=== PATIENT | female | born 1960 | race Caucasian/White ===

== ENCOUNTER 2023-03-02 08:38 | Inpatient (IN) | payer MEDICARE, SELFPAY ==
[2023-03-02] VITALS (10 sets, daily range): BP systolic 108–126; BP diastolic 70–99; PULSE 79–163; RESP 18–23; TEMP 36.5–36.8; O2SAT 89–94; BMI 38.7
--- NOTE | 2023-03-02 08:42 | ECG_ITS ---
[facility] Test Date: 2023-03-02 Pat Name: Kayli Meza Department: Room: Gender: Female Supervisor Microfilm Duplicating Unit: : 1960 Requested By: Zackery Escobar Order Number: [id number] Daniel MD: Daniel English M.D. Measurements Intervals [place] Rate: 103 P: 52 MD: 162 QRS: 66 QRSD: 87 T: 54 QT: 298 QTc: 392 Interpretive Statements SINUS TACHYCARDIA ABNORMAL RHYTHM ECG No previous ECG available for comparison Electronically Signed On 03-02-2023 17:45:40 CARTON WAXING MACHINE OPERATOR by Daniel English M.D. [id number]
--- NOTE | 2023-03-02 08:42 | XRR_ITS ---
PROCEDURE INFORMATION: Exam: XR Chest Exam date and time: 03/02/2023 8:48 AM Age: 62 years old Clinical indication: Pain; Angina pectoris; Additional info: Chest pain TECHNIQUE: Imaging protocol: Radiologic exam of the chest. Views: 1 view. COMPARISON: No relevant prior studies available. FINDINGS: Lungs: Infiltrate throughout the left hemithorax. Findings are likely related to pneumonia. Pleural spaces: Unremarkable. No pleural effusion. No pneumothorax. Heart/Mediastinum: Cardiomegaly. Bones/joints: Unremarkable. XR/XR chest 1V portable [id number] IMPRESSION: Infiltrate throughout the left hemithorax. Findings are likely related to pneumonia.
--- NOTE | 2023-03-02 08:44 | ED_ITS ---
HPI - Chest Pain 2 General: Chief Complaint: Shortness of Breath/Dyspnea Stated Complaint: Chest pain Time Seen by Provider: 03/02/23 08:42 Source: patient Mode of arrival: ambulatory History of Present Illness: 59-year-old female presents emergency ro om complaining of chest discomfort. Complaining of a cough the last couple of days. Patient occasionally has slightly blood-tinged sputum she has mild chest discomfort as well no radiation of the pain. No nausea vomiting or diarrhea. She normally uses oxygen at home usually uses 2 L has been increasing recently. MD complaint: chest pain Onset (ago): day(s) Timing of current episode: episodic Onset: during rest Relieving factors: nothing Exacerbating factors: nothing Associated symptoms: Deny abdominal pain, diaphoresis, dyspnea, fever(s), leg edema, nausea, palpitations, sense of impending doom, syncope or vomiting Review of Systems 2 Const: Denies: fever(s), chills or diaphoresis Card: Denies: chest pain, palpitations or syncope Resp: Denies: dyspnea GI: Denies: abdominal pain, nausea or vomiting : Denies: dysuria, urinary frequency or urinary urgency Musc: Denies: neck pain or back pain Skin/Breast: Denies: rash PFSH ED 2 PFSH: Medical History (Updated 03/11/23 @ 08:06 by Zackery Constantino DO) Elevated brain natriuretic peptide (BNP) level Pneumonia Acute hypoxic respiratory failure Peripheral neuropathy Chronic back pain Type 2 diabetes mellitus Hyperlipidemia COPD (chronic obstructive pulmonary disease) Surgical History (Updated 03/02/23 @ 13:26 by Joey Hill MD) History of lung surgery History of rhinoplasty History of cholecystectomy History of elbow surgery History of back surgery History of hysterectomy Family History Other Cancer Social History (Updated 03/02/23 @ 13:27 by Joey Hill MD) Smoking and tobacco/nicotine status: former use of tobacco/nicotine Alcohol intake: never Physical Exam 2 Const: GENERAL APPEARANCE: cooperative and comfortable O RIENTATION/CONSCIOUSNESS: Yes awake, Yes oriented to person, Yes oriented to place and Yes oriented to time HENMT: COMMON NORMALS: normocephalic, atraumatic and hearing grossly normal bilaterally HEAD & SCALP: normocephalic and atraumatic Resp: COMMON NORMALS: normal respiratory effort, No retractions and No use of accessory muscles AUSCULTATION: wheezes Cardio: COMMON NORMALS: regular rhythm and No murmurs present (Cardio) R ATE: tachycardic RHYTHM: regular rhythm GI: COMMON NORMALS: Soft to palpation and No hepatosplenomegaly present A USCULTATION: Yes normoactive bowel sounds PALPATION: Yes Soft to palpation, No Tenderness to palpation present (GI), No Guarding due to palpation present (GI) and Yes No hepatosplenomegaly present Extremity: COMMON NORMALS: normal to inspection, capillary refill normal, no clubbing, cyanosis or edema, no calf tenderness and no pedal edema Neuro: SENSORIUM/ORIENTATION: Yes oriented to person, Yes oriented to place and Yes oriented to time Skin: COMMON NORMALS: no rashes or lesions noted GENERAL SKIN EXAM: no rashes or lesions noted Course 2 Vital Signs: Vital signs: Vital Signs Temperature 98.7 F 03/09/23 14:31 Pulse Rate 75 03/09/23 14:31 Respiratory Rate 19 H 03/09/23 14:31 Blood Pressure 130/67 03/09/23 14:31 Pulse Oximetry 90 03/09/23 14:31 Oxygen Delivery Me thod Nasal Cannula 03/09/23 12:00 Oxygen Flow Rate 5 03/09/23 12:00 MDM - Chest Pain Medical Decision Making Bilateral basilar pneumonia with hypoxia. Antibiotics started will start aggressive pulmonary toilet admit discussed with hospitalist orders written Medical Records I reviewed the patient's medical records. Lab Data I reviewed the patient's lab results. 03/09/23 03:10 03/08/23 08:11 Radiology Impressions Chest CTA 03/02/23 10:27 IMPRESSION: 1. Extensive left lung infiltrate. 2. Suboptimal pulmonary embolism study with no obvious central pulmonary emboli. 3. Indeterminate adrenal mass. Non-emergent adrenal CT is recommended. Non-emergent chemical shift MRI (CS-MR) may be considered. (Reference: Anjali) 4. Biliary air. 5. Dental Findings Committee. J Am Valerie Radiol. 2017;14(8):9927-1836. REFERENCES: Anjali DEAN, et al. Management of Incidental Adrenal Masses: A White Paper of the ACR Inci Chest X-Ray 03/06/23 10:33 IMPRESSION: 1. Increased diffuse left pulmonary edema and/or pneumonitis which may be superimposed upon fibrosis. 2. Small amount of new right lung base atelectasis and/or pneumonitis. Chest CT 03/07/23 13:43 IMPRESSION: 1. Chronic lung disease on the left with persistent airspace opacities in the lingula, which may reflect residual pneumonia. Overall, there has been significant improvement in the airspace opacities visualized on prior exam. 2. Trace-small left-sided pleural effusion. Laboratory Results WBC 25.88 10^3/uL (3.29-11.43) H 03/02/23 08:53 RBC 4.67 10^6/uL (3.85-5.65) 03/02/23 08:53 Hgb 13.90 g/dL (11.27-16.99) 03/02/23 08:53 Hct 43.7 % (36-47) 03/02/23 08:53 MCV 93.6 fl (85-98) 03/02/23 08:53 MCH 29.8 pg (27-33) 03/02/23 08:53 MCHC 31.8 g/dL (30-55) 03/02/23 08:53 RDW 15.4 % (12.1-15.1) H 03/02/23 08:53 Plt Count 375 10^3/cmm (157-399) 03/02/23 08:53 MPV 11.2 fL (7.4-10.4) H 03/02/23 08:53 Neut % (Auto) 88.0 % 03/02/23 08:53 Lymph % (Auto) 6.0 % 03/02/23 08:53 Barren % (Auto) 3.1 % 03/02/23 08:53 Eos % (Auto) 0.2 % 03/02/23 08:53 Baso % (Auto) 0.7 % 03/02/23 08:53 Neut # (Auto) 22.77 10^3/uL (1.8-7.7) H 03/02/23 08:53 Lymph # (Auto) 1.5 10^3/uL (0.8-4.8) 03/02/23 08:53 Barren # (Auto) 0.8 10^3/uL (0.2-0.9) 03/02/23 08:53 Eos # (Auto) 0.1 10^3/uL (0.0-0.8) 03/02/23 08:53 Baso # (Auto) 0.2 10^3/uL (0.0-0.1) H 03/02/23 08:53 Nucleated RBC % (auto) 0.1 % 03/02/23 08:53 Nucleated RBCs # 0.0 /100WBC 03/02/23 08:53 Specimen Type Arterial 03/02/23 08:47 Sample Site Radial, right 03/02/23 08:47 ABG pH 7.43 (7.35-7.45) 03/02/23 08:47 ABG pCO2 42.7 mmHg (35-45) 03/02/23 08:47 ABG pO2 56.1 mmHg (80.0-100.0) L 03/02/23 08:47 ABG HCO3 28.3 mmol/L (22-26) H 03/02/23 08:47 ABG O2 Saturation 91.8 03/02/23 08:47 ABG Base Excess 3.5 mmol/L (-2.0-2.0) H 03/02/23 08:47 Micky Test Pos 03/02/23 08:47 A-a O2 Gradient 5.5 mmHg (5-10) 03/02/23 08:47 Hematocrit 41.4 % (37-47) 03/02/23 08:47 Hgb O2 Saturation 89.8 % (95-100) L 03/02/23 08:47 Carboxyhemoglobin 1.8 %THgb (0.4-20.1) 03/02/23 08:47 Methemoglobin 0.4 % (0.4-1.5) 03/02/23 08:47 Total Hemoglobin 13.5 g/dL (12-16) 03/02/23 08:47 Sodium 135.0 mmol/L (131-143) 03/02/23 08:47 Potassium 3.7 mmol/L (3.5-5.0) 03/02/23 08:47 Glucose 149.0 mg/dL (70-115) H 03/02/23 08:47 Ionized Calcium 1.4 mmol/L (1.1-1.4) 03/02/23 08:47 O2 Delivery Device Nc 03/02/23 08:47 O2 Liters/Min 6.0 % 03/02/23 08:47 Judge Clerk ID Jud 03/02/23 08:47 Sodium 137 mmol/L (136-145) 03/02/23 08:53 Potassium 4.1 mmol/L (3.5-5.1) 03/02/23 08:53 Chloride 97 mmol/L (98-107) L 03/02/23 08:53 Carbon Dioxide 28 mmol/L (22-29) 03/02/23 08:53 Anion Gap 16.1 (5-19) 03/02/23 08:53 BUN 23 mg/dL (8-23) 03/02/23 08:53 Creatinine 0.7 mg/dL (0.5-0.9) 03/02/23 08:53 GFR Calculation 84.5 mL/min (90-130) L 03/02/23 08:53 Glucose 141 mg/dL (65-115) H 03/02/23 08:53 Calculated Osmolality 290 mOsm/kg (285-295) 03/02/23 08:53 Lactic Acid 2.9 mmol/L (0.5-2.2) H 03/02/23 08:53 Calcium 10.1 mg/dL (8.5-10.5) 03/02/23 08:53 Magnesium 2.1 mg/dL (1.7-2.3) 03/02/23 08:53 Total Bilirubin 0.8 mg/dL (0.15-1.2) 03/02/23 08:53 AST 19 U/L (0-32) 03/02/23 08:53 ALT 14 U/L (0-33) 03/02/23 08:53 Alkaline Phosphatase 182 U/L (35-105) H 03/02/23 08:53 Troponin T Baseline 16 ng/L (0-10) H 03/02/23 08:53 NT-Pro-B Natriuret Pep 2484 pg/mL (0-125) H 03/02/23 08:53 Total Protein 5.9 g/dL (6.6-8.7) L 03/02/23 08:53 Albumin 2.9 g/dL (3.5-5.2) L 03/02/23 08:53 Globulin 3.0 g/dL (1.3-4.6) 03/02/23 08:53 Influenza Type A Ag negative (Negative) 03/02/23 09:01 Influenza Type B Ag negative (Negative) 03/02/23 09:01 SARS-CoV-2 Ag (Rapid) negative (Negative) 03/02/23 09:01 All radiology interpretation(s) finalized by discharge Discharge Plan Discharge Patient Disposition: Admitted As Inpatient Admit Provider: Joey Hill Clinical Impression: Acute hypoxic respiratory failure, Congestive heart failure, Acute exacerbation of chronic obstructive pulmonary disease Condition: Stable Discharge Diet: Cardiac Discharge Activity: Increase activity as tolerated Coding Level of Care Code ED Bath Design Sales Consultant for Kyle Langley
[2023-03-02 08:58] LABS: ABG PCO2 42.7 mmHg (35-45); ABG PH Result 7.43 (7.35-7.45); Alveolar-Arterial Oxygen Gradi 5.5 mmHg (5-10); Arterial Blood Gas Hematocrit 41.4 % (37-47); Base Excess ABG 3.5 mmol/L (-2.0-2.0); Blood Gas Allen Test Pos; Blood Gas Operator Identificat WALCI; Blood Gas Sample Site Radial, right; Blood Gas Sample Type Arterial; Carboxyhemoglobin 1.8 %THgb (0.4-20.1); HCO3 ABG 28.3 mmol/L (22-26); HGB O2 Sat 89.8 % (95-100); Ionized Calcium Level - ABG 1.4 mmol/L (1.1-1.4); Methemoglobin 0.4 % (0.4-1.5); Oxygen Device NC; Oxygen Saturation ABG 91.8; PO2 ABG 56.1 mmHg (80.0-100.0); Potassium Level - ABG 3.7 mmol/L (3.5-5.0); Total Hemoglobin 13.5 g/dL (12-16)
--- NOTE | 2023-03-02 09:04 | PC.PHAR ---
Addendum entered by Saige Terry 03/02/23 11:11: see all pharmacy notes on medications entered-some medications entered are different than what was filled on ext Original Note: pt states her son takes care of her medications and states he will be back in a few minutes to verify them
[2023-03-02] MEDS: aspirin 81 mg Chew Tablet 324 MG PO (09:07)
[2023-03-02 09:11] LABS: Basophils # 0.2 10^3/uL (0.0-0.1); Basophils % 0.7 %; Eosinophils # 0.1 10^3/uL (0.0-0.8); Eosinophils % 0.2 %; Hematocrit 43.7 % (36-47); Lymphocytes # 1.5 10^3/uL (0.8-4.8); Mean Corpuscular HGB Conc 31.8 g/dL (30-55); Mean Corpuscular Hemoglobin 29.8 pg (27-33); Mean Corpuscular Volume 93.6 fl (85-98); Mean Platelet Volume 11.2 fL (7.4-10.4); Monocytes # 0.8 10^3/uL (0.2-0.9); Monocytes % 3.1 %; Neutrophils # 22.77 10^3/uL (1.8-7.7); Nucleated Red Blood Cells % 0.1 %; Platelet Count 375 10^3/cmm (157-399); Red Blood Count 4.67 10^6/uL (3.85-5.65); Red Cell Distribution Width 15.4 % (12.1-15.1); White Blood Count 25.88 10^3/uL (3.29-11.43)
[2023-03-02 09:27] LABS: Influenza A by IFA negative (Negative); Influenza B by IFA negative (Negative)
[2023-03-02 09:28] LABS: SARS Covid-2 Antigen negative (Negative)
[2023-03-02 09:28] LABS: Lactic Sepsis W/Reflex 2.9 mmol/L (0.5-2.2)
[2023-03-02 09:30] LABS: Troponin(5th) Baseline 16 ng/L (0-10)
[2023-03-02] MEDS: levofloxacin-dextrose 5 % 750 MG/150 ML PREMIX 100 MG IV (09:31)
[2023-03-02 09:37] LABS: Alanine Aminotransferase 14 U/L (0-33); Albumin Level 2.9 g/dL (3.5-5.2); Alkaline Phosphatase 182 U/L (35-105); Aspartate Amino Transferase 19 U/L (0-32); Blood Urea Nitrogen 23 mg/dL (8-23); Calcium 10.1 mg/dL (8.5-10.5); Carbon Dioxide 28 mmol/L (22-29); Chloride 97 mmol/L (98-107); Glomerular Filtration Rate 84.5 mL/min (90-130); Glucose 141 mg/dL (65-115); Magnesium 2.1 mg/dL (1.7-2.3); NT Pro B Type Natriuretic Pept 2484 pg/mL (0-125); Osmolality Calculated 290 mOsm/kg (285-295); Sodium 137 mmol/L (136-145); Total Bilirubin 0.8 mg/dL (0.15-1.2); Total Protein 5.9 g/dL (6.6-8.7)
[2023-03-02 09:38] LABS: Anion Gap 16.1 (5-19); Potassium 4.1 mmol/L (3.5-5.1)
--- NOTE | 2023-03-02 10:27 | CTR_ITS ---
PROCEDURE INFORMATION: Exam: CTA Chest With Contrast Exam date and time: 03/02/2023 11:45 AM Age: 62 years old Clinical indication: Cough with hemorrhage; Prior surgery; Surgery date: 6+ months; Surgery type: Hyst; Additional info: Hemoptysis TECHNIQUE: Imaging protocol: Computed tomographic angiography of the chest with contrast. Exam focused on the arteries. 3D rendering (Not supervised by radiologist): MIP and/or 3D reconstructed images were created by the technologist. Radiation optimization: All CT scans at this facility use at least one of these dose optimization techniques: automated exposure control; mA and/or kV adjustment per patient size (includes targeted exams where dose is matched to clinical indication); or iterative reconstruction. Contrast material: OMNI 350; Contrast volume: 67 ml; Contrast route: INTRAVENOUS (IV); COMPARISON: CR XR chest 1V portable [id number] 03/02/2023 8:48 AM RADIATION DOSE METRICS: Total DLP (mGy-cm): 514.22 FINDINGS: Pulmonary arteries: Oral opacification of the main pulmonary artery with Hounsfield units of only 170 no central pulmonary emboli. Peripheral vessels are poorly visualized. No pulmonary emboli with high vessels able to be adequately visualized. Aorta: Unremarkable. No aortic aneurysm. No aortic dissection. Lungs: Extensive infiltrate seen throughout the left lung having both a consolidative in slightly patchy appearance. Pleural spaces: There is a small left pleural effusion. There is no right pleural effusion. Heart: Unremarkable. No cardiomegaly. No pericardial effusion. Lymph nodes: Small lymph nodes in the mediastinum however, there is a 14 x 20 mm pre-vascular enlarged lymph node. Liver: Indeterminate liver lesion 8 mm on the most inferior image on the right Gallbladder and bile ducts: Status post cholecystectomy. Biliary air. No biliary dilatation and Adrenal glands: Seventeen by 10 mm lesion noted involving the right of the adrenal gland. Bones/joints: Unremarkable. No acute fracture. Soft tissues: Unremarkable. Other findings: Indeterminate for the area lesion at 65 x 83 mm possibly a cyst but incompletely imaged. CT/CT angio chest PE protcl [id number] IMPRESSION: 1. Extensive left lung infiltrate. 2. Suboptimal pulmonary embolism study with no obvious central pulmonary emboli. 3. Indeterminate adrenal mass. Non-emergent adrenal CT is recommended. Non-emergent chemical shift MRI (CS-MR) may be considered. (Reference: Anjali) 4. Biliary air. 5. Dental Findings Committee. J Am Valerie Radiol. 2017;14(8):6497-2705. REFERENCES: Anjali DEAN, et al. Management of Incidental Adrenal Masses: A White Paper of the ACR Inci
--- NOTE | 2023-03-02 10:42 | ECG_ITS ---
[facility] Test Date: 2023-03-02 Pat Name: Kayli Meza Department: Room: Gender: Female Hearing Officer: : 1960 Requested By: Zackery Escobar Order Number: [id number] Daniel MD: Daniel English M.D. Measurements Intervals [place] Rate: 100 P: 51 ID: [id number] QRS: 63 QRSD: 92 T: 45 QT: 323 QTc: 417 Interpretive Statements SINUS TACHYCARDIA LOW QRS VOLTAGE IN PRECORDIAL LEADS [QRS DEFLECTION < 1.0 mV IN CHEST LEADS] ABNORMAL RHYTHM ECG Compared to ECG 03/02/2023 08:47:12 Low QRS voltage now present Electronically Signed On 03-02-2023 21:46:15 EQUIPMENT SPECIALIST by Daniel English M.D. [id number]
[2023-03-02 10:52] LABS: Reflex Lactate Order REFLEX LACTIC ORDERD
[2023-03-02] MEDS: iohexol 350 mg/mL 500 mL Btl (per mL) IV (12:02)
[2023-03-02 12:55] LABS: Lactic Acid level (Lactate) 1.8 mmol/L (0.5-2.2)
--- NOTE | 2023-03-02 13:22 | P.HP_ITS ---
Providers/Chief Complaint 2 Admitting Physician: Joey Hill MD Chief Complaint: Chest pain History of Present Illness Kayli Meza is a 62 year old female who presents to the emergency department with cough, initially with some blood in sputum with blood lessening over the last 4 days to 5 days. She has been short of breath. She is felt hot, but no confirmed temperature. She normally uses 2 L only as needed but is felt like she needed more. No recent ill contacts. No vomiting or diarrhea. Has had a prior lung decortication, but this is over 10 years ago. When she coughs heard her chest hurts a little bit. Review of Systems 2 General: Reports: 10 or more systems reviewed and unremarkable except in HPI and below Card: Reports: chest pain Resp: Reports: dyspnea and hemoptysis GI: Denies: abdominal pain, nausea or vomiting Medications/Allergies Home Medications Medication Instructions Recorded Confirmed Last Taken Type albuterol sulfate 90 mcg/actuation 2 puff inhalation Q6H PRN 03/02/23 03/02/23 Unknown History aerosol inhaler Shortness Of Breath amitriptyline 50 mg tablet 100 - 150 mg PO BEDTIME 03/02/23 03/02/23 Unknown History atorvastatin 20 mg tablet 20 mg PO BEDTIME 03/02/23 03/02/23 Unknown History calcium carbonate 600 mg-vitamin 1 tab PO BID 03/02/23 03/02/23 Unknown History D3 10 mcg (400 unit) tablet clobetasol 0.05 % topical cream 1 applic topical . DIRECTED 03/02/23 03/02/23 Unknown History diclofenac sodium 1 % topical gel 2 - 4 g topical DAILY PRN Pain 03/02/23 03/02/23 Unknown History dulaglutide 3 mg/0.5 mL 3 mg SUBCUT Q7D 03/02/23 03/02/23 03/01/23 History subcutaneous pen injector (Trulicity) fexofenadine 180 mg tablet 180 mg PO DAILY 03/02/23 03/02/23 3 Days Ago History ~02/27/23 fluticasone fur. 100 mcg-umeclid 1 inh inhalation DAILY 03/02/23 03/02/23 Unknown History 62.5 mcg-vilant 25 mcg inhalat.powder (Trelegy Ellipta) gabapentin 100 mg capsule 100 mg PO BID 03/02/23 03/02/23 3 Days Ago History ~02/27/23 gabapentin 300 mg capsule 600 mg PO BID 03/02/23 03/02/23 Unknown History lidocaine 5 % topical patch 1 patch topical . DIRECTED 03/02/23 03/02/23 Unknown History magnesium oxide 400 mg (241.3 mg 400 mg PO BID 03/02/23 03/02/23 Unknown History magnesium) tablet metformin 500 mg tablet,extended 500 mg PO BID 03/02/23 03/02/23 3 Days Ago History release 24 hr ~02/27/23 see pharmacy comment methocarbamol 500 mg tablet 500 mg PO QID PRN Muscle Spasm 03/02/23 03/02/23 Unknown History naproxen 500 mg tablet 500 mg PO DAILY 03/02/23 03/02/23 Unknown History vit C 250 mg-vit E 90 mg-zinc 40 1 cap PO DAILY 03/02/23 03/02/23 Unknown History mg-copper 1 do-aphxfy-njlceq capsule (PreserVision AREDS-2) Allergies Allergy/AdvReac Type Severity Reaction Status Date / Time No Known Allergies Allergy Verified 03/02/23 09:50 PFSH Acute 2 PFSH: Medical History (Updated 03/02/23 @ 13:30 by Joey Hill MD) Peripheral neuropathy Chronic back pain Type 2 diabetes mellitus Hyperlipidemia COPD (chronic obstructive pulmonary disease) Surgical History (Updated 03/02/23 @ 13:26 by Joey Hill MD) History of lung surgery History of rhinoplasty History of cholecystectomy History of elbow surgery History of back surgery History of hysterectomy Family History Other Cancer Social History (Updated 03/02/23 @ 13:27 by Joey Hill MD) Smoking and tobacco/nicotine status: former use of tobacco/nicotine Alcohol intake: never Vitals/I&O/Wt Last Vital Signs Temp 98.3 F 03/02/23 08:48 Pulse 103 H 03/02/23 10:03 Resp 18 03/02/23 08:48 BP 112/76 03/02/23 10:03 Pulse Ox 94 03/02/23 10:03 O2 Del Method Nasal Cannula 03/02/23 10:03 O2 Flow Rate 6 03/02/23 10:03 03/01/23 03/02/23 03/02/23 22:59 06:59 14:59 Intake Total 150 / 150 Balance 150 / 150 Physical Exam 2 Narrative: General exam demonstrates a white female, no distress HEENT: Atraumatic normocephalic. Oropharynx clear. Neck is supple no lymphadenopathy thyromegaly Cardiovascular slightly tachycardic, no murmur, regular Lungs clear but with diminished breath sounds bilaterally, left greater than right Abdomen is soft nontender with positive bowel sounds. No obvious organomegaly exam is deferred Extremities no cyanosis clubbing or edema, cap refill brisk Skin no rash Neuro no obvious focal deficits. Data 03/02/23 08:53 03/02/23 08:53 Other Labs: ABG demonstrates a pH 7.43, pCO2 42, pO2 56 on 6 L LFTs are normal with exception of alk phos of 182 Troponin 16 with repeat of 13 BNP 2484 Albumin 2.9, lactic acid 2.9, calcium 10.1 Influenza and COVID antigens negative Chest x-ray by my read demonstrates left lung infiltrate CTA which I ordered demonstrates an extensive left lung infiltrate, no obvious pulmonary emboli, indeterminant adrenal mass that can be followed up at a later date with MRI Blood cultures were obtained EKG demonstrates sinus tachycardia, normal axis, no other acute findings A&P Assessment and plan (1) Acute hypoxic respiratory failure: Patient presents with acute hypoxic respiratory failure secondary to pneumonia Wean oxygen as tolerated (2) Pneumonia: Patient is community-acquired pneumonia Await blood cultures and sputum cultures CTA demonstrates no pulmonary embolism but extensive left lung infiltrate MRSA PCR Rocephin, azithromycin IV (3) Elevated brain natriuretic peptide (BNP) level: Check echocardiogram No extra fluid per clinical exam (4) COPD (chronic obstructive pulmonary disease): Patient has underlying COPD, typically on 2 L of oxygen as needed No evidence of exacerbation currently Budesonide twice daily, DuoNeb every 6 hours (5) Type 2 diabetes mellitus: Consistent carb diet Initiate sliding scale insulin Plan Other medical problems as outlined in past medical history Full code Lovenox will suffice for DVT prophylaxis along with SCDs Attestations 2 Medical Necessity Statement*: Will require greater than 2 midnight stay secondary to pneumonia, requiring a high level of oxygen, with elevated white blood cell count in this patient with underlying COPD Diagnoses Acute hypoxic respiratory failure J96.01 Pneumonia J18.9 Elevated brain natriuretic peptide (BNP) level R79.89 COPD (chronic obstructive pulmonary disease) J44.9 Type 2 diabetes mellitus E11.9 Time Spent (min) 47
[2023-03-02] MEDS: dexamethasone 10 mg/mL INJ IV (13:31)
--- NOTE | 2023-03-02 13:38 | USCV_ITS ---
Kayli Meza Age: 62 Gender: F : 1960 Exam Date: 03/02/2023 22:14 Ordering Phys: Joey Hill MD Technologist: KATHRYN Exam Location: [facility] – [place] Indication: elevated BNP. No history of cardiac intervention per patient. BP: 108 / 71 HR: 76 Rhythm: Sinus Technical Quality: Adequate MEASUREMENTS (Male / Female) Normal Values 2D ECHO LV Diastolic Diameter PLAX 4.7 cm 4.2 - 5.9 / 3.9 - 5.3 cm LV Systolic Diameter PLAX 3.2 cm IVS Diastolic Thickness 0.9 cm 0.6 - 1.0 / 0.6 - 0.9 cm IVS Systolic Thickness 1.2 cm LVPW Diastolic Thickness 1.0 cm 0.6 - 1.0 / 0.6 - 0.9 cm LVPW Systolic Thickness 1.2 cm LVOT Diameter 2.4 cm LV Ejection Fraction 2D Teich 61.8 % LV Ejection Fraction MOD 2C 57.7 % LV Ejection Fraction 2C AL 58.9 % LA Diameter 3.5 cm LA Width 3.3 cm LA Height 5.6 cm RA Width 3.7 cm RA Height 5.1 cm Aorta at Sinotubular Diameter 2.8 cm IVC Diameter 1.4 cm M-MODE Aortic Annulus Diameter 3.2 cm LA Ao Ratio MM 1.2 MV E Point Septal Separation 0.6 cm DOPPLER AV Peak Velocity 124.0 cm/s LVOT Peak Velocity 69.0 cm/s AV Area Cont Eq vti 2.6 cm squared AV Area Cont Eq pk 2.5 cm squared MV Peak Velocity 104.0 cm/s MV Area PHT 4.0 cm squared Mitral E to A Ratio 0.7 MV E' Velocity 32.5 cm/s Mitral E to MV E' Ratio 12.9 Mitral E to LV E' Lateral Ratio 13.8 Mitral E to LV E' Septal Ratio 12.4 TR Peak Velocity 259.0 cm/s TR Peak Gradient 26.8 mmHg TV Peak E Velocity 46.0 cm/s Right Atrial Pressure 5.0 mmHg Pulmonary Artery Systolic Pressu 31.8 mmHg PV Peak Velocity 80.0 cm/s RV Acceleration Time 0.1 s RV Ejection Time 0.3 s RV AcT/ET 0.2 FINDINGS Left Ventricle Left ventricle is normal in size. LV systolic function is normal with EF of 55 to 60%. No regional wall motion abnormalities are seen. Grade 1 diastolic dysfunction Right Ventricle Normal in size and function Right Atrium Normal in size normal in size Left Atrium Normal in size Mitral Valve Structurally normal mitral valve. Trace mitral regurgitaiton. Aortic Valve Structurally normal aortic valve. No significant stenosis or regurgitation seen. Tricuspid Valve Mild tricuspid regurgitation. Pulmonary artery systolic pressure is normal. Pulmonic Valve Not well-visualized Pericardium Grossly normal Aorta Normal in size IVC Appears to be normal CONCLUSIONS LV systolic function is normal with EF 55 to 60%. Grade 1 diastolic dysfunction. Trace mitral regurgitation. Mild tricuspid regurgitation. No comparison studies are available Wolfgang Nelson MD (Electronically Signed) Final Date: 03 March 2023 10:41 S
[2023-03-02] MEDS: ipratropium-albuterol 3 mL Neb INHALATION ×2 (13:44→21:15)
--- NOTE | 2023-03-02 14:51 | ECG_ITS ---
[facility] Test Date: 2023-03-02 Pat Name: Kayli Meza Department: Room: 253 Gender: Female Land Leasing Examiner: : 1960 Requested By: Zackery Escobar Order Number: [id number] Reading MD: Daniel English M.D. Measurements Intervals [place] Rate: 101 P: 50 NC: 166 QRS: 54 QRSD: 93 T: 60 QT: 313 QTc: 407 Interpretive Statements SINUS TACHYCARDIA WITH FREQUENT SUPRAVENTRICULAR PREMATURE COMPLEXES ABNORMAL RHYTHM ECG Compared to ECG 03/02/2023 10:52:27 No significant changes Electronically Signed On 03-02-2023 21:50:11 COCONUT JELLY ROLLER by Daniel English M.D. [id number]
[2023-03-02] MEDS: cefTRIAXone 1,000 MG in sodium chloride 0.9% (plus) 50 ML 100 MG IV (15:33)
[2023-03-02] MEDS: enoxaparin 40 mg/0.4 mL Syringe SUBCUT (15:39)
[2023-03-02] MEDS: azithromycin 500 MG in sodium chloride 0.9% 250 ML 250 MG IV (16:27)
--- NOTE | 2023-03-02 16:45 | ECG_ITS ---
[facility] Test Date: 2023-03-02 Pat Name: Kayli Meza Department: Room: 253 Gender: Female Home Therapy Clinician: : 1960 Requested By: Joey Benitez Order Number: [id number] Daniel MD: Daniel English M.D. Measurements Intervals [place] Rate: 107 P: 38 AK: 158 QRS: 61 QRSD: 89 T: 31 QT: 294 QTc: 394 Interpretive Statements SINUS TACHYCARDIA WITH FREQUENT SUPRAVENTRICULAR PREMATURE COMPLEXES ABNORMAL RHYTHM ECG Compared to ECG 03/02/2023 14:51:27 No significant changes Electronically Signed On 03-02-2023 17:54:24 GREEN PLUMBER by Daniel English M.D. [email or web address] [email or web address] [id number]
[2023-03-02] MEDS: metoprolol tartrate 1 mg/1 mL SDV 5 mL 5 MG IVP (17:00)
--- NOTE | 2023-03-02 17:20 | PC.NURSE ---
pts hr elevated 160s, notified order for stat ekg tsh and mag labs, metoprolol 5mg ivp received. pts hr lowered 98. hr went back up to 150s, notified pt to transfer to [facility]
[2023-03-02 18:13] LABS: Magnesium 1.9 mg/dL (1.7-2.3); Thyroid Stimulating Hormone 2.33 uIU/mL (0.27-4.20)
[2023-03-02] MEDS: magnesium oxide 400 mg tablet PO (18:49)
[2023-03-02] MEDS: gabapentin 300 mg Capsule 600 MG PO (18:49)
[2023-03-02 18:58] LABS: Glucose Point of Care 132 mg/dL (70-110)
--- NOTE | 2023-03-02 19:01 | PC.NURSE ---
Nurse recieved patient at 1810 and as I was hooking her up to telemetry and noticed she was in sinus/ sinus tach with a pulse no higher than 104. I called dr. kim who said to keep the diltiazem if I needed it and to add 25mg metoprolol BID. Order entered. Patient was given metoprolol at 1904, about one hour early, to try to bring heart rate down. BEdside report given to Josette Valenzuela RN as I was giving patient her 1800 meds.
[2023-03-02] MEDS: metoprolol tartrate 25 mg Tablet PO (19:02)
[2023-03-02 19:05] LABS: Glucose Point of Care 128 mg/dL (70-110)
--- NOTE | 2023-03-02 19:29 | PC.NURSE ---
Nurse (SHITAL Morgan) and SHITAL Finch spoke with night hospitalist, Dr. Spencer, regarding diltiazem push of 10mg. Dr. Spencer instructed not to give if pulse was under 110. Will hold diltiazem for now and warehouse worker 2nd shift nurse will monitor heart rate. Patient currently on telemetry with pulse in sinus rhythm and rate at 100.
[2023-03-02] MEDS: atorvastatin 40 mg Tablet 20 MG PO (20:45)
[2023-03-02] MEDS: amitriptyline 25 mg Tablet 100 MG PO (20:45)
[2023-03-02] MEDS: budesonide 0.5 mg/2 mL Neb INHALATION (21:15)
[2023-03-02 21:44] LABS: Glucose Point of Care 134 mg/dL (70-110)
[2023-03-03] VITALS (14 sets, daily range): BP systolic 100–154; BP diastolic 67–86; PULSE 77–89; RESP 16–29; TEMP 36.4–37.1; O2SAT 88–91; BMI 38.9
[2023-03-03] MEDS: ipratropium-albuterol 3 mL Neb INHALATION ×4 (02:42→21:13)
[2023-03-03 04:05] LABS: Basophils % 0.1 %; Hematocrit 42.1 % (36-47); Lymphocytes # 2.1 10^3/uL (0.8-4.8); Lymphocytes % 7.1 %; Mean Corpuscular HGB Conc 31.6 g/dL (30-55); Mean Corpuscular Hemoglobin 29.8 pg (27-33); Mean Corpuscular Volume 94.4 fl (85-98); Mean Platelet Volume 11.2 fL (7.4-10.4); Monocytes # 1.3 10^3/uL (0.2-0.9); Monocytes % 4.6 %; Neutrophils % 83.9 %; Nucleated Red Blood Cells % 0 %; Platelet Count 355 10^3/cmm (157-399); Red Blood Count 4.46 10^6/uL (3.85-5.65); Red Cell Distribution Width 15.8 % (12.1-15.1); White Blood Count 28.86 10^3/uL (3.29-11.43)
[2023-03-03 04:28] LABS: Alanine Aminotransferase 9 U/L (0-33); Albumin Level 1.9 g/dL (3.5-5.2); Alkaline Phosphatase 185 U/L (35-105); Carbon Dioxide 24 mmol/L (22-29); Chloride 100 mmol/L (98-107); Globulin 4.5 g/dL (1.3-4.6); Glomerular Filtration Rate 124.6 mL/min (90-130); Glucose 147 mg/dL (65-115); Sodium 135 mmol/L (136-145); Total Bilirubin 0.5 mg/dL (0.15-1.2); Total Protein 6.4 g/dL (6.6-8.7)
[2023-03-03 04:30] LABS: Anion Gap 16.1 (5-19); Potassium 5.1 mmol/L (3.5-5.1)
[2023-03-03 04:43] LABS: Aspartate Amino Transferase 19 U/L (0-32); Blood Urea Nitrogen 25 mg/dL (8-23); Magnesium 2.1 mg/dL (1.7-2.3); Osmolality Calculated 287 mOsm/kg (285-295)
[2023-03-03] MEDS: enoxaparin 100 mg/mL Syringe 90 MG SUBCUT (04:48)
[2023-03-03 06:46] LABS: Glucose Point of Care 134 mg/dL (70-110)
--- NOTE | 2023-03-03 08:14 | P.PN_ITS ---
Documented by User: PITER Suarez STDCARMINE 03/03/23 08:36 Subjective 2 Subjective: Patient resting in bed on 5 L nasal cannula. Ms. Meza reports that she is feeling overall better today and her cough is much better. She denies shortness of breath, chest pain, nausea or vomiting. Plans to get out of bed and move around today. Medications: Reviewed: Yes Vitals/I&O/Wt Last Vital Signs Temp 97.8 F 03/03/23 07:11 Pulse 85 03/03/23 07:11 Resp 21 H 03/03/23 07:11 BP 100/71 03/03/23 07:11 Pulse Ox 88 L 03/03/23 07:11 O2 Del Method Nasal Cannula 03/03/23 07:11 O2 Flow Rate 5 03/03/23 02:44 03/02/23 03/03/23 03/03/23 22:59 06:59 14:59 Intake Total 700 / 850 400 / 1250 Balance 700 / 850 400 / 1250 Weight last 48 hrs Weight 206 lb 5 oz Weight 206 lb 5 oz Weight 204 lb 14.4 oz Physical Exam 2 Narrative: General exam demonstrates a white female, no distress. HEENT: Atraumatic normocephalic. Oropharynx clear. Neck is supple, No lymphadenopathy, No thyromegaly. Cardiovascular slightly tachycardic, no murmur, regular Lungs clear clear to auscultation bilaterally. Abdomen is soft nontender with positive bowel sounds. No obvious organomegaly exam is deferred Extremities no cyanosis clubbing or edema, cap refill brisk Skin no rash Neuro no obvious focal deficits. Data 03/03/23 03:43 03/03/23 03:43 A&P Assessment and plan (1) Acute hypoxic respiratory failure: Patient with acute hypoxic respiratory failure secondary to pneumonia. Wean oxygen as tolerated. Currently on 5L NC. (2) Pneumonia: Patient is with community-acquired pneumonia Awaiting blood cultures and sputum culture results. CTA demonstrates no pulmonary embolism but extensive left lung infiltrate 1/2. Obtain MRSA PCR Continue Rocephin, azithromycin IV (3) Elevated brain natriuretic peptide (BNP) level: Echocardiogram pending. No extra fluid per clinical exam (4) COPD (chronic obstructive pulmonary disease): Patient has underlying COPD, typically on 2 L of oxygen as needed. No evidence of exacerbation currently Continue Budesonide twice daily, DuoNeb every 6 hours (5) Type 2 diabetes mellitus: Consistent carb diet Initiate sliding scale insulin Plan Other medical problems as outlined in past medical history Full code Lovenox will suffice for DVT prophylaxis along with SCDs Coding Level of Care Code 46949 Diagnoses Acute hypoxic respiratory failure J96.01 Pneumonia J18.9 Elevated brain natriuretic peptide (BNP) level R79.89 COPD (chronic obstructive pulmonary disease) J44.9 Type 2 diabetes mellitus E11.9 Time Spent (min) 25 Documented by User: Joey Hill MD 03/03/23 09:53 Data 03/03/23 03:43 03/03/23 03:43 A&P Assessment and plan (1) Acute hypoxic respiratory failure: (2) Pneumonia: Patient is with community-acquired pneumonia Awaiting blood cultures and sputum culture results. CTA demonstrates no pulmonary embolism but extensive left lung infiltrate 1/2. Obtain MRSA PCR. Still pending Continue Rocephin, azithromycin IV Secondary to increasing white blood cell count, add vancomycin. She is also requiring a little bit more oxygen than yesterday CTA did demonstrate a very small effusion. Consider close follow-up (3) Elevated brain natriuretic peptide (BNP) level: (4) COPD (chronic obstructive pulmonary disease): (5) Type 2 diabetes mellitus: Plan Arrhythmia. Some SVT yesterday. Metoprolol added/ no further concerns. Other medical problems as outlined in past medical history Full code Lovenox will suffice for DVT prophylaxis along with SCDs Attestations 2 Medical Necessity Statement*: Needs continued hospitalization for pneumonia with hypoxia. Diagnoses Acute hypoxic respiratory failure J96.01 Pneumonia J18.9 Elevated brain natriuretic peptide (BNP) level R79.89 COPD (chronic obstructive pulmonary disease) J44.9 Type 2 diabetes mellitus E11.9 Time Spent (min) 25
[2023-03-03] MEDS: budesonide 0.5 mg/2 mL Neb INHALATION ×2 (08:40→21:13)
[2023-03-03] MEDS: gabapentin 300 mg Capsule 600 MG PO ×2 (09:27→18:34)
[2023-03-03] MEDS: pantoprazole DR 40 mg Tablet PO (09:29)
[2023-03-03] MEDS: magnesium oxide 400 mg tablet PO ×2 (09:29→18:34)
[2023-03-03] MEDS: metoprolol tartrate 25 mg Tablet PO ×2 (09:29→21:42)
--- NOTE | 2023-03-03 10:30 | PC.CHAP ---
Pastoral Care Encounter/Spiritual Assessment Type of Contact [] Declined delivery mgr visit [] Patient/Family/Request visit [] Outpatient visit [] Follow-up visit [] Physician referral [] Code/Alert [x] Routine visit [] Staff referral [] Actively dying [] Patient sleeping [x] Family support [] [] Out of room [] Palliative care [] [] Receiving care in room [] Pre-surgical visit [] Trauma [] Long length of stay [] ICU visit [] Other: Relational/Emotional Strength [x] Patient feels connected with others/family/visitors/staff [] Distress [] Loneliness/isolation [] Abandonment Spirituality of Patient [] Person of Susie [] Attends Anglican of their Susie [] Believes in Prayer [] Reads Bible or Yazidism materials [] There are Spiritual issues to be addressed Reel Slitter Interventions [x] Prayer [] Active listening [] Non-anxious presence [] Spiritual/emotional support [] Crisis/trauma care [] Spiritual counseling [] Bereavement support [] Provided bereavement packet [] Provided Bible/devotional materials [] Provided toy/stuffed animal, coloring book to patient or family member [] Provided Communion [] Anointing/[place] [] Salvation [] Completed spiritual assessment [] Other: Impact on Illness or Injury [] Angry [] Fearful [] Anxious [] Often cries [] Exhaustion [] Unable to work [] Unable to attend yarsanism [] Unable to walk/stand [] Unable to read [] Unable to drive [] Unable to eat/drink [] Unable to sleep [] Unable to be with family [] Patient intubated [] Other: Summary Time spent with patient 15 min
[2023-03-03 11:37] LABS: Glucose Point of Care 131 mg/dL (70-110)
[2023-03-03 11:44] LABS: Bilirubin Urine 1+ (Negative); Blood Urine Neg (Negative); Glucose Urine UA Norm (Normal); Ketones Urine Negative (Negative); Leukocyte Esterase Urine Negative (Negative); Nitrate Urine Negative (Negative); Protein Urine Trace (Negative); Specific Gravity, Urine 1.015 (1.005-1.030); Urine Appearance Clear (CLEAR); Urine Color Yellow (Yellow); Urobilinogen Urine Norm (Negative); pH Urine 5 (5-7)
[2023-03-03 11:46] LABS: Add Urine Culture? No; Amorphous Sediment Urine TRACE /hpf; Bacteria Urine TRACE /hpf; Mucus Urine 2+ /hpf; RBC Urine 0-4 /hpf (0-2); Squamous Epithelial Cell Urine 0-4 /hpf (0-5); WBC Urine 0-4 /hpf (0-5)
[2023-03-03] MEDS: vancomycin 1,250 MG/250 ML PIGGYBACK 250 MG IV ×2 (12:09→21:57)
[2023-03-03] MEDS: cefTRIAXone 1,000 MG in sodium chloride 0.9% (plus) 50 ML 100 MG IV (13:39)
[2023-03-03] MEDS: azithromycin 500 MG in sodium chloride 0.9% 250 ML 250 MG IV (16:14)
[2023-03-03 16:39] LABS: Glucose Point of Care 116 mg/dL (70-110)
[2023-03-03] MEDS: amitriptyline 25 mg Tablet 100 MG PO (18:35)
[2023-03-03 20:33] LABS: Glucose Point of Care 189 mg/dL (70-110)
[2023-03-03] MEDS: atorvastatin 40 mg Tablet 20 MG PO (21:41)
[2023-03-03] MEDS: insulin lispro 100 unit/1 mL SUBCUT (21:41)
[2023-03-04] VITALS (14 sets, daily range): BP systolic 124–152; BP diastolic 69–93; PULSE 69–92; RESP 14–19; TEMP 36.4–36.9; O2SAT 88–95
[2023-03-04] MEDS: ipratropium-albuterol 3 mL Neb INHALATION ×4 (03:16→20:43)
[2023-03-04 04:51] LABS: Basophils # 0.2 10^3/uL (0.0-0.1); Basophils % 0.7 %; Eosinophils # 0.1 10^3/uL (0.0-0.8); Eosinophils % 0.4 %; Hematocrit 37.4 % (36-47); Lymphocytes % 7.6 %; Mean Corpuscular HGB Conc 32.1 g/dL (30-55); Mean Corpuscular Hemoglobin 29.6 pg (27-33); Mean Corpuscular Volume 92.3 fl (85-98); Mean Platelet Volume 11.4 fL (7.4-10.4); Monocytes # 1.6 10^3/uL (0.2-0.9); Neutrophils # 20.31 10^3/uL (1.8-7.7); Neutrophils % 75.5 %; Nucleated Red Blood Cells % 0 %; Platelet Count 368 10^3/cmm (157-399); Red Blood Count 4.05 10^6/uL (3.85-5.65); Red Cell Distribution Width 15.9 % (12.1-15.1); White Blood Count 26.89 10^3/uL (3.29-11.43)
[2023-03-04 05:15] LABS: Alanine Aminotransferase 11 U/L (0-33); Albumin Level 2.3 g/dL (3.5-5.2); Alkaline Phosphatase 154 U/L (35-105); Aspartate Amino Transferase 18 U/L (0-32); Blood Urea Nitrogen 27 mg/dL (8-23); Calcium 9.7 mg/dL (8.5-10.5); Carbon Dioxide 26 mmol/L (22-29); Chloride 99 mmol/L (98-107); Globulin 3.7 g/dL (1.3-4.6); Glucose 101 mg/dL (65-115); Osmolality Calculated 287 mOsm/kg (285-295); Sodium 136 mmol/L (136-145); Total Bilirubin 0.3 mg/dL (0.15-1.2)
[2023-03-04 05:17] LABS: Slide Review Slide Review Perform
[2023-03-04 05:23] LABS: Anion Gap 15.5 (5-19); Potassium 4.5 mmol/L (3.5-5.1)
[2023-03-04] MEDS: enoxaparin 40 mg/0.4 mL Syringe SUBCUT (06:25)
[2023-03-04 06:50] LABS: Glucose Point of Care 99 mg/dL (70-110)
[2023-03-04] MEDS: budesonide 0.5 mg/2 mL Neb INHALATION ×2 (07:52→20:43)
--- NOTE | 2023-03-04 08:33 | P.PN_ITS ---
Documented by User: Marlene Villavicencio, [facility] 03/04/23 08:45 Subjective 2 Subjective: Patient resting in bed on 5 L nasal cannula oxygen, states she is not coughing as much today. Plans to get up and walk around and sit up in chair today. Denies chest pain, nausea and vomiting. Medications: Reviewed: Yes Vitals/I&O/Wt Last Vital Signs Temp 97.5 F L 03/04/23 07:26 Pulse 72 03/04/23 07:57 Resp 18 03/04/23 07:57 BP 144/81 03/04/23 07:26 Pulse Ox 89 L 03/04/23 07:57 O2 Del Method Nasal Cannula 03/04/23 07:57 O2 Flow Rate 5 03/04/23 07:57 03/03/23 03/04/23 03/04/23 22:59 06:59 14:59 Intake Total 490 / 1030 350 / 1380 Balance 490 / 1030 350 / 1380 Weight last 48 hrs Weight 201 lb Weight 206 lb 5 oz Weight 206 lb 5 oz Weight 204 lb 14.4 oz Physical Exam 2 Narrative: General exam demonstrates a white female, no distress. HEENT: Atraumatic normocephalic. Oropharynx clear. Neck is supple, No lymphadenopathy, No thyromegaly. Cardiovascular slightly tachycardic, no murmur, regular Lungs diminished bilaterally. On 5 L nasal cannula. Abdomen is soft, nontender with positive bowel sounds. No obvious organomegaly exam is deferred Extremities no cyanosis clubbing or edema, cap refill brisk Skin no rash Neuro no obvious focal deficits. Alert and oriented x 4 Data 03/04/23 03:44 03/04/23 03:44 Micro: Microbiology 03/02/23 08:58 Blood Culture - Preliminary Blood 03/02/23 09:02 Blood Culture - Preliminary Blood A&P Assessment and plan (1) Acute hypoxic respiratory failure: Patient with acute hypoxic respiratory failure secondary to pneumonia. Wean oxygen as tolerated. Currently on 5L NC. (2) Pneumonia: Patient is with community-acquired pneumonia Awaiting blood cultures and sputum culture results. MRSA PCR, Still pending Continue Rocephin, azithromycin IV Continue vancomycin. No improvement with oxygen requirement since yesterday. CTA on 03/02/23 demonstrated a very small effusion, no pulmonary embolism but extensive left lung infiltrate. Consider close follow-up. (3) Elevated brain natriuretic peptide (BNP) level: Echocardiogram 03/02/23: Normal with EF of 55 to 60% No extra fluid per clinical exam (4) COPD (chronic obstructive pulmonary disease): Patient has underlying COPD, typically on 2 L of oxygen at home as needed. No evidence of exacerbation currently Continue Budesonide twice daily, DuoNeb every 6 hours (5) Type 2 diabetes mellitus: Consistent carb diet Initiate sliding scale insulin Plan Arrhythmia. Some SVT yesterday. Metoprolol added/ no further concerns. Other medical problems as outlined in past medical history Full code Lovenox will suffice for DVT prophylaxis along with SCDs Coding Level of Care Code 59807 Diagnoses Acute hypoxic respiratory failure J96.01 Pneumonia J18.9 Elevated brain natriuretic peptide (BNP) level R79.89 COPD (chronic obstructive pulmonary disease) J44.9 Type 2 diabetes mellitus E11.9 Time Spent (min) 26 Documented by User: Joey Hill MD 03/04/23 09:42 Physical Exam 2 Narrative: General exam demonstrates a white female, no distress. Neck is supple, No lymphadenopathy, No thyromegaly. Cardiovascular slightly tachycardic, no murmur, regular Lungs diminished bilaterally. On 5 L nasal cannula. Abdomen is soft, nontender with positive bowel sounds. No obvious organomegaly Extremities no cyanosis clubbing or edema, cap refill brisk Data 03/04/23 03:44 03/04/23 03:44 A&P Assessment and plan (1) Acute hypoxic respiratory failure: (2) Pneumonia: Patient is with community-acquired pneumonia Awaiting blood cultures and sputum culture results. MRSA PCR, Still pending Continue Rocephin, azithromycin IV Continue vancomycin, this was added There was concern for no improvement on March 03 CTA on 03/02/23 demonstrated a very small effusion, no pulmonary embolism but extensive left lung infiltrate. Consider close follow-up. Check bacterial antigens and sputum culture still not obtained (3) Elevated brain natriuretic peptide (BNP) level: (4) COPD (chronic obstructive pulmonary disease): (5) Type 2 diabetes mellitus: Plan Arrhythmia. Some SVT yesterday. Metoprolol added/ no further concerns. Echo demonstrated an EF of 55 to 60%, grade 1 diastolic dysfunction Other medical problems as outlined in past medical history Full code Lovenox will suffice for DVT prophylaxis along with SCDs Attestations 2 Medical Necessity Statement*: Needs continued hospital stay for IV antibiotics secondary to pneumonia Diagnoses Acute hypoxic respiratory failure J96.01 Pneumonia J18.9 Elevated brain natriuretic peptide (BNP) level R79.89 COPD (chronic obstructive pulmonary disease) J44.9 Type 2 diabetes mellitus E11.9 Time Spent (min) 26
[2023-03-04] MEDS: pantoprazole DR 40 mg Tablet PO (09:37)
[2023-03-04] MEDS: magnesium oxide 400 mg tablet PO ×2 (09:37→17:57)
[2023-03-04] MEDS: metoprolol tartrate 25 mg Tablet PO ×2 (09:37→21:26)
[2023-03-04] MEDS: fexofenadine 60 mg Tablet 180 MG PO (09:37)
[2023-03-04] MEDS: gabapentin 300 mg Capsule 600 MG PO ×2 (09:37→17:58)
[2023-03-04] MEDS: vancomycin 1,250 MG/250 ML PIGGYBACK 250 MG IV (09:37)
[2023-03-04 11:51] LABS: Glucose Point of Care 108 mg/dL (70-110)
[2023-03-04 12:50] LABS: Methicillin-Resist S.aureu PCR DETECTED (NOT DETECTED)
[2023-03-04] MEDS: cefTRIAXone 1,000 MG in sodium chloride 0.9% (plus) 50 ML 100 MG IV (13:09)
[2023-03-04] MEDS: azithromycin 500 MG in sodium chloride 0.9% 250 ML 250 MG IV (15:44)
[2023-03-04 16:44] LABS: Glucose Point of Care 108 mg/dL (70-110)
--- NOTE | 2023-03-04 18:31 | PC.NURSE ---
Pt on 4LPM/nc at this time and keeping sats between 89-91%. Pt states taht she is supposed to be on 2LPM oxygen at home. Will continue to try and wean when possible.
[2023-03-04 20:17] LABS: Glucose Point of Care 147 mg/dL (70-110)
[2023-03-04] MEDS: amitriptyline 25 mg Tablet 100 MG PO (21:26)
[2023-03-04] MEDS: atorvastatin 40 mg Tablet 20 MG PO (21:26)
[2023-03-04 21:32] LABS: Vancomycin Trough 13.6 ug/mL (10-15)
[2023-03-04 21:38] LABS: Glucose Point of Care 180 mg/dL (70-110)
[2023-03-04] MEDS: insulin lispro 100 unit/1 mL SUBCUT (22:28)
[2023-03-04] MEDS: vancomycin 1,500 MG/300 ML PIGGYBACK 200 MG IV (23:18)
[2023-03-05] VITALS (15 sets, daily range): BP systolic 141–174; BP diastolic 75–94; PULSE 69–84; RESP 15–33; TEMP 36.4–37.1; O2SAT 91–93
[2023-03-05] MEDS: ipratropium-albuterol 3 mL Neb INHALATION ×4 (02:04→21:36)
[2023-03-05 04:10] LABS: Hematocrit 39.3 % (36-47); Mean Corpuscular HGB Conc 31.6 g/dL (30-55); Mean Corpuscular Hemoglobin 29.5 pg (27-33); Mean Corpuscular Volume 93.6 fl (85-98); Mean Platelet Volume 11.2 fL (7.4-10.4); Platelet Count 362 10^3/cmm (157-399); Red Cell Distribution Width 15.9 % (12.1-15.1); White Blood Count 21.68 10^3/uL (3.29-11.43)
[2023-03-05 04:31] LABS: Slide Review Slide Review Perform
[2023-03-05 04:35] LABS: Blood Urea Nitrogen 28 mg/dL (8-23); Calcium 9.4 mg/dL (8.5-10.5); Carbon Dioxide 28 mmol/L (22-29); Chloride 100 mmol/L (98-107); Glucose 103 mg/dL (65-115); Osmolality Calculated 290 mOsm/kg (285-295); Sodium 137 mmol/L (136-145)
[2023-03-05 04:36] LABS: Absolute Eosinophils 0.2 10^3/cmm (0.0-0.7); Eosinophils 1 %; Lymphocytes 5 %; Monocytes Absolute 2.2 10^3/cmm (0.1-0.6); Segmented Neutrophils 74 %; Total Cells Counted 100 (0-100)
[2023-03-05 04:37] LABS: Platelet Estimate Normal (Normal)
[2023-03-05] MEDS: enoxaparin 40 mg/0.4 mL Syringe SUBCUT (05:16)
[2023-03-05 06:34] LABS: Glucose Point of Care 102 mg/dL (70-110)
--- NOTE | 2023-03-05 07:42 | XRR_ITS ---
PROCEDURE INFORMATION: Exam: XR Chest Exam date and time: 03/05/2023 8:09 AM Age: 62 years old Clinical indication: Pain; Angina pectoris; Additional info: Left sided chest pain TECHNIQUE: Imaging protocol: Radiologic exam of the chest. Views: 1 view. COMPARISON: CT angio chest PE protcl [id number] 03/02/2023 11:45 AM FINDINGS: Lungs: There is decreased density of previously seen left lung infiltrates in the mid and lower lung selby and new relatively sparse left apical infiltrates. Right lung remains clear. Pleural spaces: Unremarkable. No pleural effusion. No pneumothorax. Heart/Mediastinum: Unremarkable. No cardiomegaly. Bones/joints: Unremarkable. XR/XR chest 1V portable [id number] IMPRESSION: There is decreased density of previously seen left lung infiltrates in the mid and lower lung selby and new relatively sparse left apical infiltrates.
--- NOTE | 2023-03-05 08:05 | P.PN_ITS ---
Documented by User: ponce Cook 03/05/23 08:12 Subjective 2 Subjective: Patient was evaluated this morning lying in bed on 4L/NC. Patient reports that she has some pain to her left chest/trunk area with inspiration and expiration. States is worse than yesterday. Denies any other complaints at this time. Medications: Reviewed: Yes Vitals/I&O/Wt Last Vital Signs Temp 97.5 F L 03/05/23 04:00 Pulse 71 03/05/23 04:00 Resp 19 H 03/05/23 04:00 BP 153/78 03/05/23 04:00 Pulse Ox 92 03/05/23 04:00 O2 Del Method Nasal Cannula 03/05/23 04:00 O2 Flow Rate 4 03/05/23 02:03 03/04/23 03/05/23 03/05/23 22:59 06:59 14:59 Intake Total 240 / 780 900 / 1680 Balance 240 / 780 900 / 1680 Weight last 48 hrs Weight 95.028 kg Weight 91.172 kg Physical Exam 2 Narrative: General exam demonstrates a white female, no distress. Neck is supple, No lymphadenopathy, No thyromegaly. Cardiovascular slightly tachycardic, no murmur, regular Lungs diminished bilaterally. On 4 L nasal cannula. Abdomen is soft, nontender with positive bowel sounds. No obvious organomegaly Extremities no cyanosis clubbing or edema, cap refill brisk Data 03/05/23 03:16 03/05/23 03:16 Other Labs: White blood cell 21.68 Micro: Microbiology 03/04/23 11:12 Bacterial Antigens - Final Urine,Voided A&P Assessment and plan (1) Acute hypoxic respiratory failure: Patient with acute hypoxic respiratory failure secondary to pneumonia. Wean oxygen as tolerated. Currently on 4L NC. (2) Pneumonia: Patient is with community-acquired pneumonia Leukocytosis improving. Trending blood culture and sputum culture results. MRSA PCR +, We will continue vancomycin at this time Continue Rocephin, azithromycin IV Repeat chest x-ray due to worsening left trunk/chest tenderness. There is a possibility of fluid accumulation or worsening pneumonia in the left lung space. (3) Elevated brain natriuretic peptide (BNP) level: Continues to remain no fluid per clinical exam. Echocardiogram 03/02/23: Normall with EF of 55 to 60% (4) COPD (chronic obstructive pulmonary disease): Patient has underlying COPD, typically on 2 L of oxygen at home as needed. No evidence of exacerbation currently Continue Budesonide twice daily, DuoNeb every 6 hours (5) Type 2 diabetes mellitus: Consistent carb diet Initiate sliding scale insulin Plan Plan as stated above. Will continue vancomycin for MRSA PCR positive. Obtain chest x-ray to reevaluate for fluid accumulation. No ectopy events overnight. Maintain metoprolol regimen at this time. Full code Lovenox will suffice for DVT prophylaxis along with SCDs Coding Level of Care Code 39148 Diagnoses Acute hypoxic respiratory failure J96.01 Pneumonia J18.9 Elevated brain natriuretic peptide (BNP) level R79.89 COPD (chronic obstructive pulmonary disease) J44.9 Type 2 diabetes mellitus E11.9 Time Spent (min) 26 Documented by User: Joey Hill MD 03/05/23 08:37 Data 03/05/23 03:16 03/05/23 03:16 A&P Assessment and plan (1) Acute hypoxic respiratory failure: (2) Pneumonia: Patient is with community-acquired pneumonia Leukocytosis improving. Trending blood culture and sputum culture results. MRSA PCR +, We will continue vancomycin at this time Continue Rocephin, azithromycin IV. Zithromax may be able to be discontinued today following infusion as patient will of had 3 days. Repeat chest x-ray due to worsening left trunk/chest tenderness. There is a possibility of development of parapneumonic effusion (3) Elevated brain natriuretic peptide (BNP) level: (4) COPD (chronic obstructive pulmonary disease): (5) Type 2 diabetes mellitus: Plan Plan as stated above. Will continue vancomycin for MRSA PCR positive. Obtain chest x-ray to reevaluate for parapneumonic effusion. No ectopy events overnight. Maintain metoprolol regimen at this time. Arrhythmia. Patient had some episodes of SVT early on in hospital course. Metoprolol was initiated and she has had no recurrence. Full code Lovenox will suffice for DVT prophylaxis along with SCDs Potentially slightly better as hypoxia is improving. Attestations 2 Medical Necessity Statement*: Needs continued hospital stay for IV antibiotics secondary to pneumonia Diagnoses Acute hypoxic respiratory failure J96.01 Pneumonia J18.9 Elevated brain natriuretic peptide (BNP) level R79.89 COPD (chronic obstructive pulmonary disease) J44.9 Type 2 diabetes mellitus E11.9 Time Spent (min) 26
[2023-03-05] MEDS: magnesium oxide 400 mg tablet PO ×2 (08:26→17:29)
[2023-03-05] MEDS: gabapentin 300 mg Capsule 600 MG PO ×2 (08:26→17:29)
[2023-03-05] MEDS: metoprolol tartrate 25 mg Tablet PO ×2 (08:26→20:59)
[2023-03-05] MEDS: methocarbamol 500 mg Tablet PO (08:26)
[2023-03-05] MEDS: fexofenadine 60 mg Tablet 180 MG PO (08:26)
[2023-03-05] MEDS: pantoprazole DR 40 mg Tablet PO (08:27)
[2023-03-05] MEDS: budesonide 0.5 mg/2 mL Neb INHALATION ×2 (09:25→21:36)
[2023-03-05 11:44] LABS: Glucose Point of Care 141 mg/dL (70-110)
[2023-03-05] MEDS: insulin lispro 100 unit/1 mL SUBCUT ×2 (12:45→21:44)
[2023-03-05] MEDS: vancomycin 1,500 MG/300 ML PIGGYBACK 150 MG IV ×2 (12:47→21:46)
[2023-03-05] MEDS: azithromycin 500 MG in sodium chloride 0.9% 250 ML 250 MG IV (16:19)
[2023-03-05] MEDS: cefTRIAXone 1,000 MG in sodium chloride 0.9% (plus) 50 ML 100 MG IV (16:20)
[2023-03-05 17:14] LABS: Glucose Point of Care 97 mg/dL (70-110)
[2023-03-05] MEDS: amitriptyline 25 mg Tablet 100 MG PO (20:59)
[2023-03-05] MEDS: atorvastatin 40 mg Tablet 20 MG PO (20:59)
[2023-03-05 21:22] LABS: Glucose Point of Care 155 mg/dL (70-110)
[2023-03-06] VITALS (15 sets, daily range): BP systolic 103–174; BP diastolic 57–94; PULSE 70–83; RESP 16–24; TEMP 36.5–36.8; O2SAT 86–94
[2023-03-06] MEDS: ipratropium-albuterol 3 mL Neb INHALATION ×4 (02:46→21:02)
[2023-03-06 04:06] LABS: Basophils # 0.1 10^3/uL (0.0-0.1); Basophils % 0.5 %; Eosinophils # 0.3 10^3/uL (0.0-0.8); Eosinophils % 1.2 %; Hematocrit 38.7 % (36-47); Lymphocytes # 3.5 10^3/uL (0.8-4.8); Lymphocytes % 13.3 %; Mean Corpuscular HGB Conc 32.6 g/dL (30-55); Mean Corpuscular Hemoglobin 30.1 pg (27-33); Mean Corpuscular Volume 92.4 fl (85-98); Mean Platelet Volume 10.9 fL (7.4-10.4); Monocytes # 1.4 10^3/uL (0.2-0.9); Monocytes % 5.4 %; Neutrophils # 18.32 10^3/uL (1.8-7.7); Neutrophils % 69.2 %; Nucleated Red Blood Cells % 0 %; Platelet Count 407 10^3/cmm (157-399); Red Blood Count 4.19 10^6/uL (3.85-5.65); Red Cell Distribution Width 15.8 % (12.1-15.1); White Blood Count 26.52 10^3/uL (3.29-11.43)
[2023-03-06 04:26] LABS: Anion Gap 12.9 (5-19); Blood Urea Nitrogen 17 mg/dL (8-23); Carbon Dioxide 27 mmol/L (22-29); Chloride 99 mmol/L (98-107); Glucose 129 mg/dL (65-115); Osmolality Calculated 283 mOsm/kg (285-295); Potassium 3.9 mmol/L (3.5-5.1); Sodium 135 mmol/L (136-145)
[2023-03-06] MEDS: enoxaparin 40 mg/0.4 mL Syringe SUBCUT (06:16)
[2023-03-06 06:50] LABS: Glucose Point of Care 105 mg/dL (70-110)
[2023-03-06] MEDS: magnesium oxide 400 mg tablet PO ×2 (08:23→17:38)
[2023-03-06] MEDS: gabapentin 300 mg Capsule 600 MG PO ×2 (08:23→17:38)
[2023-03-06] MEDS: metoprolol tartrate 25 mg Tablet PO ×2 (08:23→20:53)
[2023-03-06] MEDS: fexofenadine 60 mg Tablet 180 MG PO (08:23)
[2023-03-06] MEDS: pantoprazole DR 40 mg Tablet PO (08:23)
[2023-03-06] MEDS: budesonide 0.5 mg/2 mL Neb INHALATION ×2 (08:30→21:02)
--- NOTE | 2023-03-06 10:33 | XRR_ITS ---
PROCEDURE INFORMATION: Exam: XR Chest Exam date and time: 03/06/2023 12:05 PM Age: 62 years old Clinical indication: Cough and shortness of breath; Patient HX: Pneumonia; Cough; SOB; Chest pain TECHNIQUE: Imaging protocol: Radiologic exam of the chest. Views: 1 view. COMPARISON: CR XR chest 1V portable [id number] 03/05/2023 8:09 AM FINDINGS: Lungs: Increased diffuse left pulmonary edema and/or pneumonitis. This may be superimposed upon fibrosis. Small amount of new atelectasis and/or pneumonitis in the right lung base. Pleural spaces: Unremarkable. No pleural effusion. No pneumothorax. Heart/Mediastinum: Unremarkable. No cardiomegaly. Bones/joints: Unremarkable. XR/XR chest 1V portable [id number] IMPRESSION: 1. Increased diffuse left pulmonary edema and/or pneumonitis which may be superimposed upon fibrosis. 2. Small amount of new right lung base atelectasis and/or pneumonitis.
[2023-03-06 10:46] LABS: Vancomycin Trough 17.8 ug/mL (10-15)
[2023-03-06 10:51] LABS: Glucose Point of Care 141 mg/dL (70-110)
[2023-03-06] MEDS: vancomycin 1,500 MG/300 ML PIGGYBACK 150 MG IV ×2 (11:48→22:51)
--- NOTE | 2023-03-06 12:55 | P.PN_ITS ---
Subjective 2 Subjective: seen today patient feeling better wbc count still 26.52 on 3L NC which is close to baseline she is asking to go home Vitals/I&O/Wt Last Vital Signs Temp 98.3 F 03/06/23 11:35 Pulse 71 03/06/23 11:35 Resp 21 H 03/06/23 11:35 BP 174/94 03/06/23 11:35 Pulse Ox 90 03/06/23 11:35 O2 Del Method Nasal Cannula 03/06/23 11:35 O2 Flow Rate 3 03/06/23 08:32 03/05/23 03/06/23 03/06/23 22:59 06:59 14:59 Intake Total 700 / 1120 1300 / 2420 Balance 700 / 1120 1300 / 2420 Weight last 48 hrs Weight 92.487 kg Weight 95.028 kg Physical Exam 2 Narrative: General exam demonstrates a white female, no distress. Neck is supple, No lymphadenopathy, No thyromegaly. Cardiovascular, RRR Lungs diminished bilaterally. On 3 L nasal cannula. Abdomen is soft, nontender with positive bowel sounds. Extremities no cyanosis clubbing or edema, cap refill brisk Data 03/06/23 03:08 03/06/23 03:08 A&P Assessment and plan (1) Acute hypoxic respiratory failure: Patient with acute hypoxic respiratory failure secondary to pneumonia. Wean oxygen as tolerated. Currently on 4L NC. (2) Pneumonia: Patient is with community-acquired pneumonia Leukocytosis improving. Trending blood culture and sputum culture results. MRSA PCR +, We will continue vancomycin at this time Continue Rocephin,. Stop Zithromax, pt completed 3 days. Repeat chest x-ray today.Self interpretation, worsening infiltrate left upper lobe area. WIll wait for official radiology read. (3) Elevated brain natriuretic peptide (BNP) level: Continues to remain no fluid per clinical exam. Echocardiogram 03/02/23: Normall with EF of 55 to 60% (4) COPD (chronic obstructive pulmonary disease): Patient has underlying COPD, typically on 2 L of oxygen at home as needed. No evidence of exacerbation currently Continue Budesonide twice daily, DuoNeb every 6 hours (5) Type 2 diabetes mellitus: Consistent carb diet Initiate sliding scale insulin Plan Plan as stated above. Will continue vancomycin for MRSA PCR positive. No ectopy events overnight. Maintain metoprolol regimen at this time. May consider CT chest. Arrhythmia. Patient had some episodes of SVT early on in hospital course. Metoprolol was initiated and she has had no recurrence. Full code Lovenox will suffice for DVT prophylaxis along with SCDs Attestations 2 Medical Necessity Statement*: Requires continued hospitalization for pneumonia Diagnoses Acute hypoxic respiratory failure J96.01 Pneumonia J18.9 Elevated brain natriuretic peptide (BNP) level R79.89 COPD (chronic obstructive pulmonary disease) J44.9 Type 2 diabetes mellitus E11.9
[2023-03-06] MEDS: FUROsemide 10 mg/mL SDV 4mL 40 MG IVP (14:22)
[2023-03-06] MEDS: cefTRIAXone 1,000 MG in sodium chloride 0.9% (plus) 50 ML 100 MG IV (14:22)
[2023-03-06 17:35] LABS: Glucose Point of Care 152 mg/dL (70-110)
[2023-03-06] MEDS: azithromycin 500 MG in sodium chloride 0.9% 250 ML 250 MG IV (17:38)
[2023-03-06 20:22] LABS: Glucose Point of Care 105 mg/dL (70-110)
[2023-03-06] MEDS: amitriptyline 25 mg Tablet 100 MG PO (20:52)
[2023-03-06] MEDS: atorvastatin 40 mg Tablet 20 MG PO (20:53)
[2023-03-07] VITALS (16 sets, daily range): BP systolic 94–116; BP diastolic 55–72; PULSE 69–84; RESP 8–26; TEMP 36.6–36.9; O2SAT 87–96
[2023-03-07] MEDS: ipratropium-albuterol 3 mL Neb INHALATION ×4 (01:04→20:59)
[2023-03-07 04:03] LABS: Basophils # 0.1 10^3/uL (0.0-0.1); Basophils % 0.4 %; Eosinophils # 0.4 10^3/uL (0.0-0.8); Eosinophils % 1.5 %; Hematocrit 42.8 % (36-47); Lymphocytes # 3.6 10^3/uL (0.8-4.8); Lymphocytes % 13.8 %; Mean Corpuscular HGB Conc 31.5 g/dL (30-55); Mean Corpuscular Hemoglobin 29.4 pg (27-33); Mean Corpuscular Volume 93.2 fl (85-98); Mean Platelet Volume 10.9 fL (7.4-10.4); Monocytes # 1.2 10^3/uL (0.2-0.9); Monocytes % 4.6 %; Neutrophils # 18.65 10^3/uL (1.8-7.7); Neutrophils % 71.7 %; Nucleated Red Blood Cells % 0 %; Platelet Count 424 10^3/cmm (157-399); Red Blood Count 4.59 10^6/uL (3.85-5.65); Red Cell Distribution Width 15.6 % (12.1-15.1); White Blood Count 26.05 10^3/uL (3.29-11.43)
[2023-03-07 04:27] LABS: Anion Gap 14.1 (5-19); Blood Urea Nitrogen 14 mg/dL (8-23); Calcium 9.1 mg/dL (8.5-10.5); Carbon Dioxide 29 mmol/L (22-29); Chloride 95 mmol/L (98-107); Glucose 131 mg/dL (65-115); Magnesium 2.1 mg/dL (1.7-2.3); Osmolality Calculated 280 mOsm/kg (285-295); Potassium 4.1 mmol/L (3.5-5.1); Sodium 134 mmol/L (136-145)
[2023-03-07 04:40] LABS: Slide Review Slide Review Perform
[2023-03-07] MEDS: enoxaparin 40 mg/0.4 mL Syringe SUBCUT (06:16)
[2023-03-07] MEDS: acetaminophen 325 mg Tablet 650 MG PO (06:19)
[2023-03-07 06:48] LABS: Glucose Point of Care 112 mg/dL (70-110)
[2023-03-07] MEDS: budesonide 0.5 mg/2 mL Neb INHALATION ×2 (07:34→20:59)
[2023-03-07] MEDS: fexofenadine 60 mg Tablet 180 MG PO (08:42)
[2023-03-07] MEDS: magnesium oxide 400 mg tablet PO ×2 (08:43→18:01)
[2023-03-07] MEDS: gabapentin 300 mg Capsule 600 MG PO ×2 (08:43→18:01)
[2023-03-07] MEDS: metoprolol tartrate 25 mg Tablet PO ×2 (08:43→21:11)
[2023-03-07] MEDS: pantoprazole DR 40 mg Tablet PO (08:43)
[2023-03-07 12:08] LABS: Glucose Point of Care 125 mg/dL (70-110)
[2023-03-07] MEDS: vancomycin 1,500 MG/300 ML PIGGYBACK 150 MG IV (12:48)
--- NOTE | 2023-03-07 13:40 | P.PN_ITS ---
Subjective 2 Subjective: White count persistently high 26,000. She feels the same as yesterday. Vitals/I&O/Wt Last Vital Signs Temp 98.2 F 03/07/23 13:18 Pulse 84 03/07/23 13:37 Resp 16 03/07/23 13:37 BP 101/55 03/07/23 13:18 Pulse Ox 93 03/07/23 13:37 O2 Del Method Nasal Cannula 03/07/23 13:37 O2 Flow Rate 5 03/07/23 13:37 03/06/23 03/07/23 03/07/23 22:59 06:59 14:59 Intake Total 850 / 1150 800 / 1950 240 / 240 Balance 850 / 1150 800 / 1950 240 / 240 Weight last 48 hrs Weight 92.17 kg Weight 92.487 kg Physical Exam 2 Narrative: General exam demonstrates a white female, no distress. Neck is supple, No lymphadenopathy, No thyromegaly. Cardiovascular, RRR Lungs diminished bilaterally. On 3 L nasal cannula. Abdomen is soft, nontender with positive bowel sounds. Extremities no cyanosis clubbing or edema, cap refill brisk Data 03/07/23 03:06 03/07/23 03:06 A&P Assessment and plan (1) Acute hypoxic respiratory failure: Patient with acute hypoxic respiratory failure secondary to pneumonia. Wean oxygen as tolerated. Currently on 4L NC. (2) Pneumonia: Patient is with community-acquired pneumonia Leukocytosis persistently 24,000. Trending blood culture and sputum culture results. MRSA PCR +, We will continue vancomycin at this time Continue Rocephin,. Stop Zithromax, pt completed 3 days. Repeat chest x-ray yesterday showed diffuse pulmonary edema and/or pneumonitis which may be superimposed upon fibrosis. Check CT chest without contrast today. (3) Elevated brain natriuretic peptide (BNP) level: Continues to remain no fluid per clinical exam. Echocardiogram 03/02/23: Normall with EF of 55 to 60% (4) COPD (chronic obstructive pulmonary disease): Patient has underlying COPD, typically on 2 L of oxygen at home as needed. No evidence of exacerbation currently Continue Budesonide twice daily, DuoNeb every 6 hours (5) Type 2 diabetes mellitus: Consistent carb diet Initiate sliding scale insulin Plan Plan as stated above. Will continue vancomycin for MRSA PCR positive. No ectopy events overnight. Maintain metoprolol regimen at this time. Arrhythmia. Patient had some episodes of SVT early on in hospital course. Metoprolol was initiated and she has had no recurrence. Full code Lovenox will suffice for DVT prophylaxis along with SCDs Attestations 2 Medical Necessity Statement*: Requires continued hospitalization for pneumonia Diagnoses Acute hypoxic respiratory failure J96.01 Pneumonia J18.9 Elevated brain natriuretic peptide (BNP) level R79.89 COPD (chronic obstructive pulmonary disease) J44.9 Type 2 diabetes mellitus E11.9
--- NOTE | 2023-03-07 13:43 | CTR_ITS ---
PROCEDURE INFORMATION: Exam: CT Chest Without Contrast; Diagnostic Exam date and time: 03/07/2023 3:59 PM Age: 62 years old Clinical indication: Condition or disease; Lung condition and disease; Pneumonia; Additional info: Follow up pneumonia, persistent leukocytosis TECHNIQUE: Imaging protocol: Diagnostic computed tomography of the chest without contrast. Radiation optimization: All CT scans at this facility use at least one of these dose optimization techniques: automated exposure control; mA and/or kV adjustment per patient size (includes targeted exams where dose is matched to clinical indication); or iterative reconstruction. COMPARISON: CT angio chest PE protcl [id number] 03/02/2023 11:45 AM RADIATION DOSE METRICS: Total DLP (mGy-cm): 629.02 FINDINGS: Thyroid: Grossly unremarkable. Lungs: The left lung is fibrotic, possibly sequela of prior infection. Previously visualized airspace disease from March 02, 2023 has significantly improved since prior. There is persistent airspace disease in the lingula concerning for ongoing digital pneumonia. No focal consolidation or pneumothorax. Pleural spaces: Trace-small left-sided pleural effusion with mild pleural thickening. Heart: No cardiomegaly or pericardial effusion. Coronary arteries: No evidence of coronary artery calcification. Mediastinal space: No evidence of mediastinal hemorrhage or hematoma. No gross evidence of mass within limitations of a noncontrast exam. Trachea and airway are grossly patent. Lymph nodes: No evidence of mediastinal adenopathy. Evaluation for hilar adenopathy is limited by lack of IV contrast. Vasculature: Mild atherosclerosis without evidence of aneurysmal dilatation of the thoracic aorta. Evaluation for acute vascular injury or thrombosis is limited by lack of IV contrast. Bones/joints: No evidence of acute fracture or aggressive osseous lesion. Soft tissues: No evidence of fluid collection, hematoma or masslike lesion in the superficial soft tissues within limitations of a noncontrast exam. Other: Partially visualized 10 cm simple appearing left-sided renal cyst. Consider follow-up outpatient renal ultrasound for complete assessment. Status post cholecystectomy with mild pneumobilia, possibly sequela of prior sphincterotomy. CT/CT chest con [id number] IMPRESSION: 1. Chronic lung disease on the left with persistent airspace opacities in the lingula, which may reflect residual pneumonia. Overall, there has been significant improvement in the airspace opacities visualized on prior exam. 2. Trace-small left-sided pleural effusion.
[2023-03-07] MEDS: cefTRIAXone 1,000 MG in sodium chloride 0.9% (plus) 50 ML 100 MG IV (15:30)
[2023-03-07] MEDS: azithromycin 500 MG in sodium chloride 0.9% 250 ML 250 MG IV (16:20)
[2023-03-07 17:01] LABS: Glucose Point of Care 181 mg/dL (70-110)
[2023-03-07] MEDS: insulin lispro 100 unit/1 mL SUBCUT (18:01)
[2023-03-07 20:42] LABS: Glucose Point of Care 89 mg/dL (70-110)
[2023-03-07] MEDS: atorvastatin 40 mg Tablet 20 MG PO (21:11)
[2023-03-07] MEDS: amitriptyline 25 mg Tablet 100 MG PO (21:12)
[2023-03-07] MEDS: vancomycin 1,500 MG/300 ML PIGGYBACK 200 MG IV (23:00)
[2023-03-08] VITALS (15 sets, daily range): BP systolic 92–132; BP diastolic 55–79; PULSE 66–81; RESP 10–20; TEMP 36.4–37.2; O2SAT 89–96
[2023-03-08] MEDS: ipratropium-albuterol 3 mL Neb INHALATION ×3 (02:13→14:48)
[2023-03-08] MEDS: methocarbamol 500 mg Tablet PO (02:30)
[2023-03-08] MEDS: acetaminophen 325 mg Tablet 650 MG PO ×2 (05:44→15:14)
[2023-03-08] MEDS: enoxaparin 40 mg/0.4 mL Syringe SUBCUT (05:45)
[2023-03-08 05:49] LABS: Glucose Point of Care 121 mg/dL (70-110)
[2023-03-08] MEDS: budesonide 0.5 mg/2 mL Neb INHALATION (07:33)
--- NOTE | 2023-03-08 08:11 | P.PN_ITS ---
Subjective 2 Subjective: seen today feels slightly better awaiting labs this am on 5L NC requesting to go home desaturates when talks. Vitals/I&O/Wt Last Vital Signs Temp 97.9 F 03/08/23 04:00 Pulse 73 03/08/23 07:41 Resp 18 03/08/23 07:34 BP 107/60 03/08/23 04:00 Pulse Ox 96 03/08/23 07:34 O2 Del Method Nasal Cannula 03/08/23 07:34 O2 Flow Rate 5 03/08/23 07:34 03/07/23 03/08/23 03/08/23 22:59 06:59 14:59 Intake Total 540 / 1080 300 / 1380 Balance 540 / 1080 300 / 1380 Weight last 48 hrs Weight 93.44 kg Weight 92.17 kg Physical Exam 2 Narrative: General exam demonstrates a white female, no distress. desats talking, but no apparent dyspnea Neck is supple, No lymphadenopathy, No thyromegaly. Cardiovascular, RRR Lungs diminished bilaterally. On 5 L nasal cannula. Abdomen is soft, nontender with positive bowel sounds. Extremities no cyanosis clubbing or edema, cap refill brisk Data 03/08/23 08:11 03/08/23 08:11 A&P Assessment and plan (1) Acute hypoxic respiratory failure: Patient with acute hypoxic respiratory failure secondary to pneumonia. Wean oxygen as tolerated. Currently on 4L NC. (2) Pneumonia: Patient is with community-acquired pneumonia Leukocytosis persistently 24,000. Trending blood culture and sputum culture results. MRSA PCR +, We will continue vancomycin at this time Continue Rocephin,. Stop Zithromax, pt completed [address] chest 03/06/23 1. Chronic lung disease on the left with persistent airspace opacities in the lingula, which may reflect residual pneumonia. Overall, there has been significant improvement in the airspace opacities visualized on prior exam. 2. Trace-small left-sided pleural effusion. Talked with on = call pulm. Reviewed CT and case. Recommendation to continue hospitalization for IV ABX. Will not DC patient today. Check oxygen on ambualtion today. (3) Elevated brain natriuretic peptide (BNP) level: appears mildly fluid overloaded today Echocardiogram 03/02/23: Normall with EF of 55 to 60% will diurese. lasix 40 IV x 1 (4) COPD (chronic obstructive pulmonary disease): Patient has underlying COPD, typically on 2 L of oxygen at home as needed. No evidence of exacerbation currently Continue Budesonide twice daily, DuoNeb every 6 hours (5) Type 2 diabetes mellitus: Consistent carb diet Initiate sliding scale insulin Plan Plan as stated above. Will continue vancomycin for MRSA PCR positive. No ectopy events overnight. Maintain metoprolol regimen at this time. Arrhythmia. Patient had some episodes of SVT early on in hospital course. Metoprolol was initiated and she has had no recurrence. Full code Lovenox will suffice for DVT prophylaxis along with SCDs Attestations 2 Medical Necessity Statement*: Requires continued hospitalization for pneumonia Diagnoses Acute hypoxic respiratory failure J96.01 Pneumonia J18.9 Elevated brain natriuretic peptide (BNP) level R79.89 COPD (chronic obstructive pulmonary disease) J44.9 Type 2 diabetes mellitus E11.9
[2023-03-08 08:39] LABS: Basophils # 0.1 10^3/uL (0.0-0.1); Basophils % 0.3 %; Eosinophils # 0.3 10^3/uL (0.0-0.8); Eosinophils % 1.4 %; Hematocrit 43.1 % (36-47); Lymphocytes # 3.4 10^3/uL (0.8-4.8); Lymphocytes % 16.3 %; Mean Corpuscular HGB Conc 31.6 g/dL (30-55); Mean Corpuscular Volume 95.1 fl (85-98); Mean Platelet Volume 10.6 fL (7.4-10.4); Monocytes # 0.8 10^3/uL (0.2-0.9); Monocytes % 3.9 %; Neutrophils # 15.32 10^3/uL (1.8-7.7); Neutrophils % 73.9 %; Nucleated Red Blood Cells % 0 %; Platelet Count 445 10^3/cmm (157-399); Red Blood Count 4.53 10^6/uL (3.85-5.65); Red Cell Distribution Width 15.3 % (12.1-15.1); White Blood Count 20.76 10^3/uL (3.29-11.43)
[2023-03-08 09:03] LABS: Alanine Aminotransferase 25 U/L (0-33); Albumin Level 2.8 g/dL (3.5-5.2); Alkaline Phosphatase 109 U/L (35-105); Anion Gap 12.6 (5-19); Aspartate Amino Transferase 18 U/L (0-32); Blood Urea Nitrogen 13 mg/dL (8-23); Carbon Dioxide 30 mmol/L (22-29); Chloride 97 mmol/L (98-107); Globulin 3.4 g/dL (1.3-4.6); Glomerular Filtration Rate 124.6 mL/min (90-130); Glucose 117 mg/dL (65-115); Osmolality Calculated 281 mOsm/kg (285-295); Potassium 4.6 mmol/L (3.5-5.1); Sodium 135 mmol/L (136-145); Total Bilirubin 0.3 mg/dL (0.15-1.2); Total Protein 6.2 g/dL (6.6-8.7)
[2023-03-08] MEDS: FUROsemide 10 mg/mL SDV 4mL 40 MG IVP (09:39)
[2023-03-08] MEDS: fexofenadine 60 mg Tablet 180 MG PO (09:39)
[2023-03-08] MEDS: gabapentin 300 mg Capsule 600 MG PO ×2 (09:40→17:25)
[2023-03-08] MEDS: pantoprazole DR 40 mg Tablet PO (09:40)
[2023-03-08] MEDS: magnesium oxide 400 mg tablet PO ×2 (09:40→17:25)
[2023-03-08] MEDS: vancomycin 1,500 MG/300 ML PIGGYBACK 200 MG IV ×2 (10:51→22:25)
[2023-03-08] MEDS: metoprolol tartrate 25 mg Tablet PO ×2 (10:52→22:23)
[2023-03-08 12:04] LABS: Glucose Point of Care 111 mg/dL (70-110)
--- NOTE | 2023-03-08 12:46 | PC.SOCIAL ---
IMM Update pg 2 of IMM updated and reviewed w/ patient. Copy provided and copy dated, initialed and placed in chart.
[2023-03-08] MEDS: azithromycin 500 MG in sodium chloride 0.9% 250 ML 150 MG IV (13:54)
[2023-03-08] MEDS: cefTRIAXone 1,000 MG in sodium chloride 0.9% (plus) 50 ML 100 MG IV (13:54)
[2023-03-08 16:41] LABS: Glucose Point of Care 119 mg/dL (70-110)
[2023-03-08 21:40] LABS: Glucose Point of Care 149 mg/dL (70-110)
--- NOTE | 2023-03-08 22:03 | PC.RESP ---
Missed dose, RT in ER. Nno resp distress noted.
[2023-03-08] MEDS: amitriptyline 25 mg Tablet 100 MG PO (22:23)
[2023-03-08] MEDS: insulin lispro 100 unit/1 mL SUBCUT (22:24)
[2023-03-08] MEDS: atorvastatin 40 mg Tablet 20 MG PO (22:24)
[2023-03-09] VITALS (11 sets, daily range): BP systolic 100–130; BP diastolic 57–67; PULSE 63–82; RESP 14–19; TEMP 36.7–37.1; O2SAT 87–94; BMI 38.9
[2023-03-09] MEDS: ipratropium-albuterol 3 mL Neb INHALATION ×2 (03:11→07:43)
[2023-03-09 03:50] LABS: Basophils # 0.1 10^3/uL (0.0-0.1); Basophils % 0.3 %; Eosinophils # 0.3 10^3/uL (0.0-0.8); Eosinophils % 1.8 %; Hematocrit 41.5 % (36-47); Lymphocytes # 2.6 10^3/uL (0.8-4.8); Lymphocytes % 16.7 %; Mean Corpuscular HGB Conc 30.6 g/dL (30-55); Mean Corpuscular Hemoglobin 29.5 pg (27-33); Mean Corpuscular Volume 96.3 fl (85-98); Mean Platelet Volume 11.1 fL (7.4-10.4); Monocytes # 0.9 10^3/uL (0.2-0.9); Monocytes % 5.5 %; Neutrophils # 11.29 10^3/uL (1.8-7.7); Neutrophils % 73.7 %; Nucleated Red Blood Cells % 0 %; Platelet Count 393 10^3/cmm (157-399); Red Blood Count 4.31 10^6/uL (3.85-5.65); White Blood Count 15.33 10^3/uL (3.29-11.43)
[2023-03-09] MEDS: enoxaparin 40 mg/0.4 mL Syringe SUBCUT (05:41)
[2023-03-09 07:03] LABS: Glucose Point of Care 150 mg/dL (70-110)
[2023-03-09] MEDS: budesonide 0.5 mg/2 mL Neb INHALATION (07:43)
[2023-03-09] MEDS: insulin lispro 100 unit/1 mL SUBCUT (08:51)
[2023-03-09] MEDS: fexofenadine 60 mg Tablet 180 MG PO (08:52)
[2023-03-09] MEDS: metoprolol tartrate 25 mg Tablet PO (08:52)
[2023-03-09] MEDS: gabapentin 300 mg Capsule 600 MG PO (08:52)
[2023-03-09] MEDS: pantoprazole DR 40 mg Tablet PO (08:52)
[2023-03-09] MEDS: magnesium oxide 400 mg tablet PO (08:52)
--- NOTE | 2023-03-09 10:45 | PM.DCS ---
Discharge Providers Date of Admission: 03/02/23 09:32 Date of Discharge: March 09, 2023 Attending Provider at Admission: Joey Hill MD Attending Provider at Discharge: Naomi Spencer MD Diagnoses at Discharge Discharge Diagnosis (1) Acute hypoxic respiratory failure: Status: Acute (2) Pneumonia: Status: Acute (3) Elevated brain natriuretic peptide (BNP) level: Status: Acute (4) COPD (chronic obstructive pulmonary disease): Status: Acute (5) Type 2 diabetes mellitus: Status: Acute Reason for Visit Reason for Visit: Chest pain Hospital Course Hospital Course 62 female who has history of COPD, oxygen dependent uses 2 L at baseline presented with chief complaint of worsening shortness of breath, on admission she was requiring 4 L which worsened to 5 L, she was diagnosed with MRSA pneumonia, leukocytosis improved to 15,000 at the time of discharge, she has remained afebrile throughout hospitalization, patient has trilogy inhaler at home I have increased the dose added doxycycline and Augmentin at the time of discharge, she has qualified for 5 L of oxygen we will also give her follow-up to see Dr. Suárez, repeat CT scan has shown improvement, trace small subtle left pleural effusion patient is doing much better clinically, case management has arranged oxygen at the time of discharge, Physical Exam Narrative: Currently on 5 L No active wheezing or crackles Pleasant cooperative Good energy Pleasant cooperative GCS 15 Nonfocal neuroexam Discharge Data Studies Completed and Pending Completed Studies During Hospitalization Category Date Time Status CT chest wo con [id number] Routine Cat Scan 03/07/23 13:43 Completed CTA chest [CT angio chest PE protcl [id number]] Stat Cat Scan 03/02/23 10:27 Completed XR chest 1V portable [id number] Routine Exams 03/06/23 10:33 Completed XR chest 1V portable [id number] Stat Exams 03/02/23 08:42 Completed XR chest 1V portable [id number] Urgent Exams 03/05/23 07:42 Completed Blood Cultures ([facility]) Routine Lab 03/02/23 09:02 Completed CV. echo complete* [id number] Routine Ultrasound 03/02/23 13:38 Completed Pending at discharge Category Date Time Status Blood Cultures ([facility]) Routine Lab 03/02/23 08:58 Results Sputum Culture and Gram Stain Stat Lab 03/08/23 06:00 Results Radiology Impressions Chest CTA 03/02/23 10:27 IMPRESSION: 1. Extensive left lung infiltrate. 2. Suboptimal pulmonary embolism study with no obvious central pulmonary emboli. 3. Indeterminate adrenal mass. Non-emergent adrenal CT is recommended. Non-emergent chemical shift MRI (CS-MR) may be considered. (Reference: Anjali) 4. Biliary air. 5. Dental Findings Committee. J Am Valerie Radiol. 2017;14(8):3304-0109. REFERENCES: Anjali DEAN, et al. Management of Incidental Adrenal Masses: A White Paper of the ACR Inci Chest X-Ray 03/06/23 10:33 IMPRESSION: 1. Increased diffuse left pulmonary edema and/or pneumonitis which may be superimposed upon fibrosis. 2. Small amount of new right lung base atelectasis and/or pneumonitis. Chest CT 03/07/23 13:43 IMPRESSION: 1. Chronic lung disease on the left with persistent airspace opacities in the lingula, which may reflect residual pneumonia. Overall, there has been significant improvement in the airspace opacities visualized on prior exam. 2. Trace-small left-sided pleural effusion. Laboratory Results WBC 15.33 10^3/uL (3.29-11.43) H 03/09/23 03:10 RBC 4.31 10^6/uL (3.85-5.65) 03/09/23 03:10 Hgb 12.70 g/dL (11.27-16.99) 03/09/23 03:10 Hct 41.5 % (36-47) 03/09/23 03:10 MCV 96.3 fl (85-98) 03/09/23 03:10 MCH 29.5 pg (27-33) 03/09/23 03:10 MCHC 30.6 g/dL (30-55) 03/09/23 03:10 RDW 15.0 % (12.1-15.1) 03/09/23 03:10 Plt Count 393 10^3/cmm (157-399) 03/09/23 03:10 MPV 11.1 fL (7.4-10.4) H 03/09/23 03:10 Neut % (Auto) 73.7 % 03/09/23 03:10 Lymph % (Auto) 16.7 % 03/09/23 03:10 Island % (Auto) 5.5 % 03/09/23 03:10 Eos % (Auto) 1.8 % 03/09/23 03:10 Baso % (Auto) 0.3 % 03/09/23 03:10 Neut # (Auto) 11.29 10^3/uL (1.8-7.7) H 03/09/23 03:10 Lymph # (Auto) 2.6 10^3/uL (0.8-4.8) 03/09/23 03:10 Island # (Auto) 0.9 10^3/uL (0.2-0.9) 03/09/23 03:10 Eos # (Auto) 0.3 10^3/uL (0.0-0.8) 03/09/23 03:10 Baso # (Auto) 0.1 10^3/uL (0.0-0.1) 03/09/23 03:10 Nucleated RBC % (auto) 0 % 03/09/23 03:10 Total Counted 100 (0-100) 03/05/23 03:16 Atypical Lymphs % Not Reportable 03/05/23 03:16 Segmented Neutrophils 74 % 03/05/23 03:16 Abs Segm Neuts (Man) 16.0 10/cmm (1.6-7.1) H 03/05/23 03:16 Band Neutrophils Not Reportable 03/05/23 03:16 Lymphocytes (Manual) 5 % 03/05/23 03:16 Monocytes (Manual) 10.0 % 03/05/23 03:16 Absolute Monocytes 2.2 10^3/cmm (0.1-0.6) H 03/05/23 03:16 Eosinophils (Manual) 1 % 03/05/23 03:16 Absolute Eosinophils 0.2 10^3/cmm (0.0-0.7) 03/05/23 03:16 Basophils (Manual) 0.0 % 03/05/23 03:16 Absolute Basophils 0.0 10^3/cmm (0.0-0.2) 03/05/23 03:16 Metamyelocytes 3.0 % 03/05/23 03:16 Myelocytes 7.0 % 03/05/23 03:16 Nucleated RBCs # 0.0 /100WBC 03/09/23 03:10 Platelet Estimate Normal (Normal) 03/05/23 03:16 Specimen Type Arterial 03/02/23 08:47 Sample Site Radial, right 03/02/23 08:47 ABG pH 7.43 (7.35-7.45) 03/02/23 08:47 ABG pCO2 42.7 mmHg (35-45) 03/02/23 08:47 ABG pO2 56.1 mmHg (80.0-100.0) L 03/02/23 08:47 ABG HCO3 28.3 mmol/L (22-26) H 03/02/23 08:47 ABG O2 Saturation 91.8 03/02/23 08:47 ABG Base Excess 3.5 mmol/L (-2.0-2.0) H 03/02/23 08:47 Micky Test Pos 03/02/23 08:47 A-a O2 Gradient 5.5 mmHg (5-10) 03/02/23 08:47 Hematocrit 41.4 % (37-47) 03/02/23 08:47 Hgb O2 Saturation 89.8 % (95-100) L 03/02/23 08:47 Carboxyhemoglobin 1.8 %THgb (0.4-20.1) 03/02/23 08:47 Methemoglobin 0.4 % (0.4-1.5) 03/02/23 08:47 Total Hemoglobin 13.5 g/dL (12-16) 03/02/23 08:47 Sodium 135.0 mmol/L (131-143) 03/02/23 08:47 Potassium 3.7 mmol/L (3.5-5.0) 03/02/23 08:47 Glucose 149.0 mg/dL (70-115) H 03/02/23 08:47 Ionized Calcium 1.4 mmol/L (1.1-1.4) 03/02/23 08:47 O2 Delivery Device Nc 03/02/23 08:47 O2 Liters/Min 6.0 % 03/02/23 08:47 Airport Representative ID [place] 03/02/23 08:47 Sodium 135 mmol/L (136-145) L 03/08/23 08:11 Potassium 4.6 mmol/L (3.5-5.1) 03/08/23 08:11 Chloride 97 mmol/L (98-107) L 03/08/23 08:11 Carbon Dioxide 30 mmol/L (22-29) H 03/08/23 08:11 Anion Gap 12.6 (5-19) 03/08/23 08:11 BUN 13 mg/dL (8-23) 03/08/23 08:11 Creatinine 0.5 mg/dL (0.5-0.9) 03/08/23 08:11 GFR Calculation 124.6 mL/min (90-130) 03/08/23 08:11 Glucose 117 mg/dL (65-115) H 03/08/23 08:11 POC Glucose 150 mg/dL (70-110) H 03/09/23 06:43 Calculated Osmolality 281 mOsm/kg (285-295) L 03/08/23 08:11 Lactic Acid 2.9 mmol/L (0.5-2.2) H 03/02/23 08:53 Lactic Acid (Sepsis) 1.8 mmol/L (0.5-2.2) 03/02/23 12:10 Calcium 9.0 mg/dL (8.5-10.5) 03/08/23 08:11 Magnesium 2.1 mg/dL (1.7-2.3) 03/07/23 03:06 Total Bilirubin 0.3 mg/dL (0.15-1.2) 03/08/23 08:11 AST 18 U/L (0-32) 03/08/23 08:11 ALT 25 U/L (0-33) 03/08/23 08:11 Alkaline Phosphatase 109 U/L (35-105) H 03/08/23 08:11 Troponin T Baseline 16 ng/L (0-10) H 03/02/23 08:53 Troponin T 120 Minute 13.40 ng/L (0-10) H 03/02/23 10:56 Delta Troponin T -2.60 ABS# (0-10) L 03/02/23 10:56 Troponin T Hi Sens 6Hr 9.00 ng/L (0-10) 03/02/23 17:07 Troponin T Hi Sens 6Hr Delta -7.00 ng/L (0-12) L 03/02/23 17:07 NT-Pro-B Natriuret Pep 2484 pg/mL (0-125) H 03/02/23 08:53 Total Protein 6.2 g/dL (6.6-8.7) L 03/08/23 08:11 Albumin 2.8 g/dL (3.5-5.2) L 03/08/23 08:11 Globulin 3.4 g/dL (1.3-4.6) 03/08/23 08:11 TSH 2.33 uIU/mL (0.27-4.20) 03/02/23 10:56 Urine Color Yellow (Yellow) 03/03/23 11:19 Urine Appearance Clear (CLEAR) 03/03/23 11:19 Urine pH 5 (5-7) 03/03/23 11:19 Ur Specific [place] 1.015 (1.005-1.030) 03/03/23 11:19 Urine Protein Trace (Negative) 03/03/23 11:19 Urine Glucose (UA) Norm (Normal) 03/03/23 11:19 Urine Ketones Negative (Negative) 03/03/23 11:19 Urine Blood Neg (Negative) 03/03/23 11:19 Urine Nitrate Negative (Negative) 03/03/23 11:19 Urine Bilirubin 1+ (Negative) H 03/03/23 11:19 Urine Urobilinogen Norm mg/dL (Negative) 03/03/23 11:19 Ur Leukocyte Esterase Negative (Negative) 03/03/23 11:19 Urine RBC 0-4 /hpf (0-2) H 03/03/23 11:19 Urine WBC 0-4 /hpf (0-5) H 03/03/23 11:19 Ur Squamous Epith Cells 0-4 /hpf (0-5) H 03/03/23 11:19 Amorphous Sediment Trace /hpf 03/03/23 11:19 Urine Bacteria Trace /hpf (NONE) 03/03/23 11:19 Urine Mucus 2+ /hpf 03/03/23 11:19 Vancomycin Trough 17.8 ug/mL (10-15) H 03/06/23 09:36 Influenza Type A Ag negative (Negative) 03/02/23 09:01 Influenza Type B Ag negative (Negative) 03/02/23 09:01 SARS-CoV-2 Ag (Rapid) negative (Negative) 03/02/23 09:01 MRSA (PCR) Detected (NOT DETECTED) A 03/03/23 14:00 Vitals Last Vital Signs Temp 98.4 F 03/09/23 08:00 Pulse 72 03/09/23 08:00 Resp 19 H 03/09/23 08:00 BP 130/67 03/09/23 08:00 Pulse Ox 87 L 03/09/23 10:04 O2 Del Method Nasal Cannula 03/09/23 08:00 O2 Flow Rate 5 03/09/23 10:04 Discharge Plan Discharge Patient Disposition: Home Condition: Stable Prescriptions: New albuterol sulfate 90 mcg/actuation HFA aerosol inhaler 2 inh inhalation Q8H PRN (Reason: shortness of breath or wheezing) Qty: 8.5 3RF doxycycline hyclate 100 mg tablet 100 mg PO BID 7 Days Qty: 14 0RF Trelegy Ellipta 200-62.5-25 mcg blister with device 1 inh inhalation DAILY Qty: 60 5RF amoxicillin-pot clavulanate 875-125 mg tablet 1 tab PO BID Qty: 6 0RF Continued methocarbamol 500 mg tablet 500 mg PO QID PRN (Reason: Muscle Spasm) atorvastatin 20 mg tablet 20 mg PO BEDTIME clobetasol 0.05 % cream 1 applic TOPICAL . DIRECTED fexofenadine 180 mg tablet 180 mg PO DAILY magnesium oxide 400 mg (241.3 mg magnesium) tablet 400 mg PO BID lidocaine 5 % adhesive patch,medicated 1 patch topical . DIRECTED Rx Instructions: on for 12 hours then off for 12 hours gabapentin 300 mg capsule 600 mg PO BID Rx Instructions: not started as of 03/02/23 gabapentin 100 mg capsule 100 mg PO BID albuterol sulfate 90 mcg/actuation HFA aerosol inhaler 2 puff INHALATION Q6H PRN (Reason: Shortness Of Breath) metformin 500 mg tablet extended release 24 hr 500 mg PO BID naproxen 500 mg tablet 500 mg PO DAILY calcium carbonate-vitamin D3 600 mg-10 mcg (400 unit) tablet 1 tab PO BID diclofenac sodium 1 % gel 2 - 4 g TOPICAL DAILY PRN (Reason: Pain) PreserVision AREDS-2 250-90-40-1 mg Capsule 1 cap PO DAILY Trulicity 3 mg/0.5 mL pen injector 3 mg SUBCUT Q7D Rx Instructions: on wednesday Trelegy Ellipta 100-62.5-25 mcg Blister With Device 1 inh INHALATION DAILY Discontinued amitriptyline 50 mg tablet 100 - 150 mg PO BEDTIME Discharge Orders: Discharge Order (Routine); Ordered 03/09/23 Ordered By: Naomi Spencer Other Ambulatory Orders: DME: Oxygen (Order) Location: None Selected Ordered By: Naomi Spencer Referrals: DatarErickson MD [Physician] - 6 Weeks Discharge Diet: Cardiac Discharge Activity: Increase activity as tolerated Patient Instructions: Opioid Safety Discharge Attestations Time Spent in Discharge Care*: greater than 30 min Quality Metrics Clinical Quality Measures [ No reported AMI, CVA or VTE this stay] Coding Level of Care Code Acute Code for [facility] Fwd Diagnoses Acute hypoxic respiratory failure J96.01 Pneumonia J18.9 Elevated brain natriuretic peptide (BNP) level R79.89 COPD (chronic obstructive pulmonary disease) J44.9 Type 2 diabetes mellitus E11.9
[2023-03-09 11:04] LABS: Glucose Point of Care 114 mg/dL (70-110)
--- NOTE | 2023-03-09 14:45 | PC.NURSE ---
Discharge Note Patient discharged to home via POV accompanied by ex . Discharge instructions reviewed with patient and/or senior sales representative. Mobile pharmacy medications and/or prescriptions provided. Belongings/home medications returned.
== END 2023-03-09 14:46 | disposition home or self-care (01) | DRG 177 ==
LOC: ER 10:34 → MEDSURG 11:22 → CSU 18:29
PROVIDERS: Internal Medicine; Admitting Provider Internal Medicine; Emergency Provider Family Medicine; Visit Provider Internal Medicine
DX: J15.212 Pneumonia due to Methicillin resistant Staphylococcus aureus (principal); J96.01 Acute respiratory failure with hypoxia; I47.10 Supraventricular tachycardia, unspecified; Z99.81 Dependence on supplemental oxygen; Z87.891 Personal history of nicotine dependence; E78.5 Hyperlipidemia, unspecified; J44.9 Chronic obstructive pulmonary disease, unspecified; R79.89 Other specified abnormal findings of blood chemistry; E11.42 Type 2 diabetes mellitus with diabetic polyneuropathy; G89.29 Other chronic pain; M54.9 Dorsalgia, unspecified
CPT/HCPCS: 36415; 36416; 36600; 71045; 71250; 71275; 80048; 80051; 80053; 80202; 81001; 81015; 82330; 82805; 82962; 83605; 83735; 83880; 84443; 84484; 85007; 85025; 86403; 87040; 87070; 87205; 87426; 87641; 87804; 93005; 93306; 94640; 94760; 96365; 96367; 96372; 96376; 99285; J0456; J0696; J1100; J1650; J1815; J1940; J1956; J3370; J3490; J7050; J7626; Q9967

== ENCOUNTER → 2023-04-02 10:08 | Outpatient (BNVA) | payer MEDICARE, SELFPAY | PROVIDERS: Visit Provider Internal Medicine Pulmonary Disease | DX: Z09 Encounter for follow-up examination after completed treatment for conditions other than malignant neoplasm (principal); J43.2 Centrilobular emphysema; Z87.891 Personal history of nicotine dependence | CPT/HCPCS: 99204 ==